=== PATIENT | female | born 1935 | race Caucasian/White ===

== ENCOUNTER → 2017-04-11 | Outpatient (CLI) | payer MEDICARE ==
--- NOTE | 2017-04-12 06:57 | US ---
EXAMINATION TYPE: US thyroid st tissue head/neck DATE OF EXAM: 04/11/2017 COMPARISON: Previous study dated 10/14/2016. CLINICAL HISTORY: E04.9 Goiter. Follow up thyroid nodules GLAND SIZE: Right Lobe: 4.1 x 1.7 x 1.8 cm Overall Parenchyma: homogenous Left Lobe: 4.2 x 1.4 x 1.6 cm Overall Parenchyma: homogeneous Isthmus Thickness: 0.2 cm Bilateral neck scanned, no evidence of lymphadenopathy. Bilateral sub-centimeter nodules noted, measuring less than 0.4cm. Stable appearance from prior exam IMPRESSION: STABLE THYROID ULTRASOUND.
== END | disposition home or self-care (01) ==
LOC: RADUSWWP 16:06
PROVIDERS: ATTEND Family Medicine
DX: E04.9 Nontoxic goiter, unspecified (principal)
CPT/HCPCS: 76536

== ENCOUNTER → 2017-10-19 | Outpatient (CLI) | payer MEDICARE ==
--- NOTE | 2017-10-19 11:02 | US ---
EXAMINATION TYPE: US thyroid st tissue head/neck DATE OF EXAM: 10/19/2017 COMPARISON: Thyroid ultrasound April 11, 2017 CLINICAL HISTORY: E04.1 SINGLE THYROID GOITER. GLAND SIZE: Right Lobe: 3.9 x 1.9 x 1.6 cm Overall Parenchyma: homogenous Left Lobe: 3.6 x 1.4 x 1.3 cm Overall Parenchyma: homogeneous Isthmus Thickness: 0.2 cm NODULES RIGHT: # of nodules measured on right: 0 LEFT: # of nodules measured on left: 0 Small, bilateral sub-centimeter nodules noted. Bilateral neck scanned, no evidence of lymphadenopathy. Thyroid gland remains slightly small in size and heterogeneous echotexture with scattered small nodul es. IMPRESSION: Small heterogeneous thyroid identified today, no new greater than 1 cm solid or cystic nodules are id entified.
== END | disposition home or self-care (01) ==
LOC: RADUSWWP 10:00
PROVIDERS: ATTEND Family Medicine
DX: E04.1 Nontoxic single thyroid nodule (principal)
CPT/HCPCS: 76536

== ENCOUNTER 2017-12-08 12:18 | Inpatient (IN) | payer MEDICARE ==
[2017-12-08] MEDS ORDERED: IPRATROPIUM-ALBUTEROL 3 ML NEB INHALATION STA (12:40)
[2017-12-08] MEDS ORDERED: methylPREDNISolone SOD SUCCI 125 MG/2 ML VIAL IV STA (12:40)
[2017-12-08] MEDS ORDERED: SODIUM CHLORIDE 0.9% 1,000 ML IV STA ×2 (12:40)
[2017-12-08] MEDS ORDERED: PROMETHAZ-COD 6.25-10 MG/5 ML 5 ML CUP PO STA (12:40)
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
[2017-12-08 13:18] LABS: Basophils # (A) 0.1 k/uL (0-0.2); Basophils % (A) 1 %; Eosinophils # (A) 0.3 k/uL (0-0.7); Eosinophils % (A) 5 %; HCT 44.4 % (34.0-46.0); HGB 14.3 gm/dL (11.4-16.0); Lymphocytes # (A) 1.6 k/uL (1.0-4.8); Lymphocytes % (A) 24 %; MCH 32.5 pg (25.0-35.0); MCHC 32.1 g/dL (31.0-37.0); MCV 101.3 fL (80.0-100.0); Mean Platelet Volume 6.6; Monocytes # (A) 0.4 k/uL (0-1.0); Monocytes % (A) 5 %; Neutrophils # (A) 4.1 k/uL (1.3-7.7); Neutrophils % (A) 62 %; Platelet Count 247 k/uL (150-450); RBC 4.38 m/uL (3.80-5.40); RDW 12.6 % (11.5-15.5); WBC 6.6 k/uL (3.8-10.6)
[2017-12-08 13:23] LABS: INR 1.2 (<1.2); Partial Thromboplastin Time 23.1 sec (22.0-30.0); Prothrombin Time 11.1 sec (9.0-12.0)
[2017-12-08 13:25] LABS: ALT 22 U/L (9-52); AST 25 U/L (14-36); Alkaline Phosphatase 106 U/L (38-126); Anion Gap 13 mmol/L; Blood Urea Nitrogen 13 mg/dL (7-17); Calcium 8.9 mg/dL (8.4-10.2); Carbon Dioxide 24 mmol/L (22-30); Chloride 102 mmol/L (98-107); Glucose 88 mg/dL (74-99); Potassium 4.3 mmol/L (3.5-5.1); Sodium 139 mmol/L (137-145); Total Bilirubin 0.9 mg/dL (0.2-1.3); Total Protein 6.8 g/dL (6.3-8.2)
[2017-12-08 13:31] LABS: Creatine Kinase 33 U/L (30-135)
[2017-12-08 13:44] LABS: Creatine Kinase MB 1.2 ng/mL (0.0-2.4); Troponin I <0.012 ng/mL (0.000-0.034)
--- NOTE | 2017-12-08 14:09 | XR ---
EXAMINATION TYPE: XR chest 2V DATE OF EXAM: 12/08/2017 COMPARISON: Prior chest x-ray 03/24/2017, 12/05/[address] 12/03/2015 HISTORY: Difficulty breathing, cough and congestion TECHNIQUE: Frontal and lateral views of the chest are obtained. FINDINGS: Patient is rotated. There are overlying cardiac leads. There is some improvement in aerati on compared to prior exam. Bandlike area of increased density at the left lung base may reflect scarr ing rather than atelectasis. No pneumothorax or pleural effusion. Interstitium is increased. Prominen t lung volume is indicative of underlying emphysema, COPD. Heart there is a spinal curvature. Size is within normal limits. Pulmonary vascularity and richelle not significantly changed. Volume loss persists in the right upper lobe. The aorta is dense. IMPRESSION: Rotated exam. There is interstitial lung disease and emphysema. No acute cardiopulmonary disease is evident.
[2017-12-08] MEDS ORDERED: cefTRIAXone IN SWFI 1,000 MG/10 ML SYRINGE IVP STA (14:30)
[2017-12-08] MEDS ORDERED: LEVOFLOXACIN 750MG-D5W PMX 750 MG in DEXTROSE/WATER 1 150ML.BAG IVPB STA (14:33)
[2017-12-08 15:00] LABS: Appearance,Urine Clear (Clear); Bilirubin,Urine Negative (Negative); Blood,Urine Negative (Negative); Color,Urine Colorless; Glucose,Urine (UA) Negative (Negative); Ketones,Urine Trace (Negative); Leukocyte Esterase,Urine Negative (Negative); Nitrite,Urine Negative (Negative); Protein,Urine Negative (Negative); Specific Gravity,Urine 1.001 (1.001-1.035); Urobilinogen,Urine <2.0 mg/dL (<2.0)
[2017-12-08] MEDS ORDERED: methylPREDNISolone SOD SUCCI 125 MG/2 ML VIAL IV SCH (18:00)
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
[2017-12-08] MEDS: predniSONE 20 MG TAB PO SCH (18:37)
[2017-12-08 18:51] VITALS: BMI 24.0
[2017-12-08] MEDS: IPRATROPIUM-ALBUTEROL 3 ML NEB INHALATION PRN (20:13)
[2017-12-08] MEDS: guaiFENesin 600 MG TABLET.ER PO SCH (21:35)
[2017-12-08] MEDS: DOXYCYCLINE 50 MG CAP PO SCH (21:35)
[2017-12-09] MEDS: IPRATROPIUM-ALBUTEROL 3 ML NEB INHALATION PRN ×4 (07:14→20:02)
[2017-12-09] MEDS: DOXYCYCLINE 50 MG CAP PO SCH (08:08)
[2017-12-09] MEDS: guaiFENesin 600 MG TABLET.ER PO SCH ×2 (08:08→20:20)
[2017-12-09] MEDS: PANTOPRAZOLE 40 MG TABLET PO SCH ×2 (08:08→16:51)
[2017-12-09] MEDS: POTASSIUM CHLORIDE ER 20 MEQ TAB.ER PO SCH (08:08)
[2017-12-09] MEDS: predniSONE 20 MG TAB PO SCH (08:08)
[2017-12-09] MEDS: FUROSEMIDE 20 MG TAB PO SCH (08:09)
--- NOTE | 2017-12-09 15:44 | P.DS ---
Providers Date of admission: 12/08/17 14:57 Attending physician: Chandan Murray Consults: 12/08/17 17:51 Consult Physician Routine Consulting Provider: Ofe Sahu Consult Reason/Comments: COPD exacerbation Do you want consulting provider notified?: Yes Primary care physician: [facility] Course: 82-year-old the female admitted for COPD exacerbation doing pretty well if cleared by pulmonary patient will be discharged today. PHYSICAL EXAMINATION: GENERAL: The patient is alert and oriented x3, not in any acute distress. Well developed, well nourished. HEENT: Pupils are round and equally reacting to light. EOMI. No scleral icterus. No conjunctival pallor. Normocephalic, atraumatic. No pharyngeal erythema. No thyromegaly. CARDIOVASCULAR: S1 and S2 present. No murmurs, rubs, or gallops. PULMONARY: Minimal expiratory wheezing was appreciated ABDOMEN: Soft, nontender, nondistended, normoactive bowel sounds. No palpable organomegaly. MUSCULOSKELETAL: No joint swelling or deformity. EXTREMITIES: No cyanosis, clubbing, or pedal edema. NEUROLOGICAL: Gross neurological examination did not reveal any focal deficits. SKIN: No rashes. Assessment and Plan Plan: -Shortness of breath colons possibly secondary to COPD exacerbation do -Tracheobronchitis: -Possibility of chronic diastolic dysfunction patient is not in acute exacerbation patient has normal ejection fraction the past apparently patient was treated for pulmonary edema in the past is on 20 mg of Lasix which will be continued along with the 20 mEq of potassium. -Gastroesophageal reflux disease -Hyperlipidemia Patient Condition at Discharge: Stable Plan - Discharge Summary New Discharge Prescriptions: New Budesonide-Formot 160-4.5 Mcg [Symbicort 160-4.5 Mcg Inhaler] 2 puff INHALATION BID #1 inhaler Doxycycline [Vibramycin] 100 mg PO BID #8 cap predniSONE 10 mg PO DAILY #30 tab Continue Latanoprost Ophth [Xalatan 0.005%] 1 drops BOTH EYES HS Potassium Chloride [Klor-Con 20] 20 meq PO DAILY Omeprazole [PriLOSEC] 20 mg PO AC-BID Furosemide [Lasix] 20 mg PO DAILY Cholecalciferol [Vitamin D3] 1,000 unit PO DAILY Multivitamin/Iron/Folic Acid [Centrum Complete Multivit Tab] 1 tab PO DAILY Vitamin A 8,000 unit PO DAILY Ipratropium-Albuterol Nebulize [Duoneb 0.5 mg-3 mg/3 ml Soln] 3 ml INHALATION RT-QID #0 Vitamin E (Dl,Tocopheryl Acet) [Vitamin E] 400 unit PO DAILY Vitamin B Complex 1 cap PO DAILY Ascorbic Acid [Vitamin C] 500 mg PO DAILY guaiFENesin [Mucinex] 600 mg PO BID PRN PRN Reason: Congestion Discharge Medication List Cholecalciferol [Vitamin D3] 1,000 unit PO DAILY 11/19/15 [History] Furosemide [Lasix] 20 mg PO DAILY 11/19/15 [History] Latanoprost Ophth [Xalatan 0.005%] 1 drops BOTH EYES HS 11/19/15 [History] Multivitamin/Iron/Folic Acid [Centrum Complete Multivit Tab] 1 tab PO DAILY 12/30 [History] Omeprazole [PriLOSEC] 20 mg PO AC-BID 11/19/15 [History] Potassium Chloride [Klor-Con 20] 20 meq PO DAILY 11/19/15 [History] Vitamin A 8,000 unit PO DAILY 11/26/15 [History] Ipratropium-Albuterol Nebulize [Duoneb 0.5 mg-3 mg/3 ml Soln] 3 ml INHALATION RT -QID #0 12/05/15 [Rx] Ascorbic Acid [Vitamin C] 500 mg PO DAILY 12/08/17 [History] Vitamin B Complex 1 cap PO DAILY 12/08/17 [History] Vitamin E (Dl,Tocopheryl Acet) [Vitamin E] 400 unit PO DAILY 12/08/17 [History] guaiFENesin [Mucinex] 600 mg PO BID PRN 12/08/17 [History] Budesonide-Formot 160-4.5 Mcg [Symbicort 160-4.5 Mcg Inhaler] 2 puff INHALATION BID #1 inhaler 12/09/17 [Rx] Doxycycline [Vibramycin] 100 mg PO BID #8 cap 12/09/17 [Rx] predniSONE 10 mg PO DAILY #30 tab 12/09/17 [Rx] Follow up Appointment(s)/Referral(s): Fabio Pemberton DO [Primary Care Provider] - 1 Week Patient Instructions/Handouts: COPD (Chronic Obstructive Pulmonary Disease) (DC ) Discharge Disposition: HOME SELF-CARE
[2017-12-09] MEDS: PROMETHAZ-COD 6.25-10 MG/5 ML 5 ML CUP PO PRN (16:50)
[2017-12-09] MEDS: methylPREDNISolone SOD SUCCI 125 MG/2 ML VIAL IV SCH ×2 (16:51→23:58)
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
[2017-12-09] MEDS ORDERED: LEVOFLOXACIN 750MG-D5W PMX 750 MG in DEXTROSE/WATER 1 150ML.BAG IVPB SCH (17:00)
[2017-12-09] MEDS: SYMBICORT 160-4.5 MCG INHALER INHALATION SCH (20:02)
[2017-12-09] MEDS: LATANOPROST 0.005% OPHTH DROPS 2.5 ML BTL BOTH EYES SCH (20:20)
[2017-12-10] MEDS: PROMETHAZ-COD 6.25-10 MG/5 ML 5 ML CUP PO PRN ×2 (01:50→23:45)
[2017-12-10] MEDS: methylPREDNISolone SOD SUCCI 125 MG/2 ML VIAL IV SCH ×3 (05:43→17:19)
[2017-12-10] MEDS: FUROSEMIDE 20 MG TAB PO SCH (07:58)
[2017-12-10] MEDS: PANTOPRAZOLE 40 MG TABLET PO SCH ×2 (07:58→17:19)
[2017-12-10] MEDS: guaiFENesin 600 MG TABLET.ER PO SCH ×2 (07:58→20:26)
[2017-12-10] MEDS: POTASSIUM CHLORIDE ER 20 MEQ TAB.ER PO SCH (07:58)
[2017-12-10] MEDS: SYMBICORT 160-4.5 MCG INHALER INHALATION SCH ×2 (10:17→19:47)
[2017-12-10] MEDS: IPRATROPIUM-ALBUTEROL 3 ML NEB INHALATION PRN ×3 (10:17→19:47)
--- NOTE | 2017-12-10 13:44 | P.PN ---
Subjective Progress Note Date: 12/10/17 Principal diagnosis: Acute exacerbation of chronic obstructive pulmonary disease, complicated by purulent tracheobronchitis. Failed outpatient treatment. Ankita is a 82-year-old white female patient of Dr. Fabio Pemberton, who presented to the emergency department on 12/08/2017 at 1218 with complaints of 5 day history of coughing, chest congestion, increasing shortness of breath. Her symptoms started last Tuesday with coughing, by Tuesday night she started getting sicker, increasing chest congestion, unable to clear any sputum. She tried her home nebulizers with not much improvement. She called Dr. Pemberton on Tuesday who prescribed Z-Umesh for her however her symptoms were progressing. She became increasingly wheezy, short of breath, weak, she was having very severe coughing spells, she started developing burning in her chest and throat. Denied any fever, denied any chills or sore throat. Does have a history of underlying COPD, follows with Dr. Tafoya. Her FEV1 from 06/14/2016 was at 85% of predicted consistent with minimal obstructive airway disease. Patient is on nebulizer DuoNeb in addition to Mucinex. Other medical history includes recurrent pneumonias, CHF, hyperlipidemia, GERD/reflux, hyperlipidemia, osteoarthritis, glaucoma. Patient is a former smoker, quit in 2012, but prior to that smoked less than a pack a day, 10-15 cigarettes a day for about 1 10 years. Patient has been afebrile, hemodynamically stable. Pulse ox is 91% on room air. Chest x-ray from 12/08/2017 showed interstitial lung disease and emphysema, but no acute cardiopulmonary disease. Patient was initially started on Levaquin and Rocephin, which was later switched to doxycycline. She received a liter bolus in the emergency room. She was given IV steroids that are now switched to oral steroids. She is on nebulized treatments. Patient's lab work showed WBC within normal limits at 6.6, hemoglobin hemoglobin of 14.3, INR is 1.2, electrolytes and renal profile within normal limits. Cardiac enzymes and troponins were negative times one. Influenza screen was negative. The patient is seen again today 12/10/2017 in follow-up on the regular medical floor. She is awake and alert in no acute distress. She denies any worsening shortness of breath cough or congestion. She still has some dyspnea on exertion. Still not quite back to her baseline. She is maintaining good O2 saturations in the 90s on room air. She's been afebrile. Hemodynamically stable. Blood culture reveals no growth to date. Objective - Vital Signs Vital signs: Vital Signs Temp 98.3 F 12/10/17 06:41 Pulse 96 12/10/17 10:29 Resp 16 12/10/17 06:41 BP 114/58 12/10/17 06:41 Pulse Ox 94 L 12/10/17 06:41 Intake & Output 12/09/17 12/10/17 12/10/17 18:59 06:59 18:59 Intake Total 1200 Balance 1200 Intake: Oral 1200 Other: # Voids 2 3 - Exam GENERAL EXAM: Alert, active, comfortable in no apparent distress. HEAD: Normocephalic. EYES: Normal reaction of pupils, equal size. NOSE: Clear with pink turbinates. THROAT: No erythema or exudates. NECK: No masses, no JVD. CHEST: No chest wall deformity. LUNGS: Equal air entry with faint end expiratory wheeze. Diminished.. CVS: S1 and S2 normal with no audible murmur, regular rhythm. ABDOMEN: No hepatosplenomegaly, normal bowel sounds, no guarding or rigidity. SPINE: No scoliosis or deformity SKIN: No rashes CENTRAL NERVOUS SYSTEM: No focal deficits, tone is normal in all 4 extremities. EXTREMITIES: There is no peripheral edema. No clubbing, no cyanosis. Peripheral pulses are intact. - Labs CBC & Chem 7: 12/08/17 13:00 12/08/17 13:00 Labs: Microbiology - Last 24 Hours (Table) 12/08/17 13:00 Blood Culture - Preliminary Blood No Growth after 24 hours Assessment and Plan Assessment: Assessment: #1. Acute COPD exacerbation with purulent tracheobronchitis with failed outpatient treatment #2. History of COPD, with FEV1 of 85% of predicted. #3. Nicotine dependence, currently in remission, quit in 2012, prior to that smoked for 60 years 10-15 cigarettes a day #4. History of recurrent pneumonias in the past, #5. History of CHF #6. Hyperlipidemia #7. Previous history of C. diff colitis #8. History of GERD/reflux #9. Osteoarthritis/osteoporosis #10. History of bilateral cataract surgery Plan: The patient was seen and evaluated by Dr. Tafoya. She is improved today as compared to yesterday. We'll continue with her current treatment plan. We will increase her activity as tolerated. We'll continue to follow. I, the cosigning physician, performed a history & physical examination of the patient. Lungs sounds have bilateral end expiratory wheeze. Maintaining good O2 saturations in the 90s on room air. I discussed the assessment and plan of care with my nurse practitioner, Franci Capps. I attest to the above note as dictated by her.
[2017-12-10] MEDS ORDERED: LEVOFLOXACIN 750 MG TAB PO SCH (17:00)
[2017-12-10] MEDS: LATANOPROST 0.005% OPHTH DROPS 2.5 ML BTL BOTH EYES SCH (20:26)
--- NOTE | 2017-12-10 22:57 | P.PN ---
Progress Note - Text Progress Note Date: 12/10/17 Date of service: 12/10/2017 Presenting complaint: Cough History of present complaint: Patient presented with acute tracheobronchitis and COPD exacerbation. Still congested in the chest. Not able to bring up any sputum. Feels a bit better. Did tolerate her diet. Had a bowel movement. Up to the bathroom. Does feel tired. Review of systems: Was done for constitutional, cardiovascular, GI, pulmonary. relevant finding as above Medications are reviewed: That include nebulize bronchodilator, Levaquin, IV Solu-Medrol On examination: VITAL SIGNS: 96.4, 95, 14, 144/60, 94% room air GENERAL APPEARANCE: Laying in bed, tired appearing. HEENT: Normal external appearance of nose and ear. Oral cavity normal EYES: Pupils equal. Conjunctiva normal. NECK: JVD not raised. Mass not palpable. RESPIRATORY: Respiratory effort increased, lungs diminished breath sounds with expiratory coarse crackles and some wheezing. CARDIOVASCULAR: First and second sounds normal. No edema. ABDOMEN: Soft. Liver and spleen not palpable. No tenderness. No mass palpable. PSYCHIATRY: Alert and oriented x3. Mood and affect normal. Investigations: No blood work from today Assessment: -Acute COPD exacerbation due to acute tracheal bronchitis -Chronic congestive heart failure EF not known -Primary osteoarthritis of multiple joints -Chronic urinary stress incontinence -Chronic hyperlipidemia -GERD Plan: Continue with bronchodilators. back the dose of Solu-Medrol. Discussed with Dr. Seth and the patient. Hopefully can be discharged tomorrow
[2017-12-10] MEDS: IPRATROPIUM-ALBUTEROL 3 ML NEB INHALATION SCH (23:04)
[2017-12-10] MEDS: ENOXAPARIN 40 MG/0.4 ML SYRINGE SQ SCH (23:45)
[2017-12-10 23:55] VITALS: RESP 16
[2017-12-11 06:40] VITALS: BP 113/70; TEMP 97
[2017-12-11] MEDS: FUROSEMIDE 20 MG TAB PO SCH (07:50)
[2017-12-11] MEDS: guaiFENesin 600 MG TABLET.ER PO SCH (07:50)
[2017-12-11] MEDS: POTASSIUM CHLORIDE ER 20 MEQ TAB.ER PO SCH (07:51)
[2017-12-11] MEDS: PANTOPRAZOLE 40 MG TABLET PO SCH (07:51)
[2017-12-11] MEDS: ENOXAPARIN 40 MG/0.4 ML SYRINGE SQ SCH (07:51)
[2017-12-11] MEDS ORDERED: methylPREDNISolone SOD SUCCI 40 MG/ML 1 ML VIAL IV SCH (08:00)
[2017-12-11] MEDS: IPRATROPIUM-ALBUTEROL 3 ML NEB INHALATION SCH ×2 (08:24→11:31)
[2017-12-11] MEDS: SYMBICORT 160-4.5 MCG INHALER INHALATION SCH (08:24)
[2017-12-11 08:36] LABS: Basophils % (A) 0 %; Eosinophils % (A) 0 %; HCT 44.1 % (34.0-46.0); HGB 13.8 gm/dL (11.4-16.0); Lymphocytes # (A) 1.8 k/uL (1.0-4.8); Lymphocytes % (A) 12 %; MCH 32.5 pg (25.0-35.0); MCHC 31.4 g/dL (31.0-37.0); MCV 103.4 fL (80.0-100.0); Macrocytosis Slight; Mean Platelet Volume 6.7; Monocytes # (A) 0.5 k/uL (0-1.0); Monocytes % (A) 3 %; Neutrophils # (A) 12.8 k/uL (1.3-7.7); Neutrophils % (A) 84 %; Platelet Count 327 k/uL (150-450); RBC 4.26 m/uL (3.80-5.40); RDW 12.8 % (11.5-15.5); WBC 15.3 k/uL (3.8-10.6)
[2017-12-11 08:38] LABS: Anion Gap 14 mmol/L; Blood Urea Nitrogen 22 mg/dL (7-17); Calcium 9.2 mg/dL (8.4-10.2); Carbon Dioxide 24 mmol/L (22-30); Chloride 105 mmol/L (98-107); Glucose 104 mg/dL (74-99); Potassium 3.9 mmol/L (3.5-5.1); Sodium 143 mmol/L (137-145)
--- NOTE | 2017-12-11 09:37 | P.PN ---
Subjective Progress Note Date: 12/11/17 Principal diagnosis: Acute exacerbation of COPD, compensated by purulent tracheobronchitis with failed outpatient treatmentJose Luciano is a 82-year-old white female patient of Dr. Fabio Pemberton, who presented to the emergency department on 12/08/2017 at 1218 with complaints of 5 day history of coughing, chest congestion, increasing shortness of breath. Her symptoms started last Tuesday with coughing, by Tuesday night she started getting sicker, increasing chest congestion, unable to clear any sputum. She tried her home nebulizers with not much improvement. She called Dr. Pemberton on Tuesday who prescribed Z-Umesh for her however her symptoms were progressing. She became increasingly wheezy, short of breath, weak, she was having very severe coughing spells, she started developing burning in her chest and throat. Denied any fever, denied any chills or sore throat. Does have a history of underlying COPD, follows with Dr. Tafoya. Her FEV1 from 06/14/2016 was at 85% of predicted consistent with minimal obstructive airway disease. Patient is on nebulizer DuoNeb in addition to Mucinex. Other medical history includes recurrent pneumonias, CHF, hyperlipidemia, GERD/reflux, hyperlipidemia, osteoarthritis, glaucoma. Patient is a former smoker, quit in 2012, but prior to that smoked less than a pack a day, 10-15 cigarettes a day for about 1 10 years. Patient has been afebrile, hemodynamically stable. Pulse ox is 91% on room air. Chest x-ray from 12/08/2017 showed interstitial lung disease and emphysema, but no acute cardiopulmonary disease. Patient was initially started on Levaquin and Rocephin, which was later switched to doxycycline. She received a liter bolus in the emergency room. She was given IV steroids that are now switched to oral steroids. She is on nebulized treatments. Patient's lab work showed WBC within normal limits at 6.6, hemoglobin hemoglobin of 14.3, INR is 1.2, electrolytes and renal profile within normal limits. Cardiac enzymes and troponins were negative times one. Influenza screen was negative. The patient is seen again today 12/10/2017 in follow-up on the regular medical floor. She is awake and alert in no acute distress. She denies any worsening shortness of breath cough or congestion. She still has some dyspnea on exertion. Still not quite back to her baseline. She is maintaining good O2 saturations in the 90s on room air. She's been afebrile. Hemodynamically stable. Blood culture reveals no growth to date. On 12/11/2017 patient seen in follow-up. She reports her breathing is easier, she feels less chest congestion, less dyspneic. Her vitals are stable, she is on room air with O2 sat at 95%. She is afebrile. Lung sounds are positive for scattered rhonchi, but this is improved from previous exams. Patient is up ambulating, tolerating activity well. She is requesting to go home today. From pulmonary standpoint she is stable for discharge home today. Objective - Vital Signs Vital signs: Vital Signs Temp 97.0 F L 12/11/17 06:39 Pulse 100 12/11/17 08:39 Resp 16 12/11/17 06:39 BP 113/70 12/11/17 06:39 Pulse Ox 95 12/11/17 06:39 Intake & Output 12/10/17 12/11/17 12/11/17 18:59 06:59 18:59 Other: Voiding Method Toilet # Voids 1 2 - Exam GENERAL EXAM: Alert, active, comfortable in no apparent distress. HEAD: Normocephalic. EYES: Normal reaction of pupils, equal size. NOSE: Clear with pink turbinates. THROAT: No erythema or exudates. NECK: No masses, no JVD. CHEST: No chest wall deformity. LUNGS: Coarse lung sounds, scattered rhonchi. No rales or wheezes, improvement noted since previous exams. CVS: S1 and S2 normal with no audible murmur, regular rhythm. ABDOMEN: No hepatosplenomegaly, normal bowel sounds, no guarding or rigidity. SPINE: No scoliosis or deformity SKIN: No rashes CENTRAL NERVOUS SYSTEM: No focal deficits, tone is normal in all 4 extremities. EXTREMITIES: There is no peripheral edema. No clubbing, no cyanosis. Peripheral pulses are intact. - Labs CBC & Chem 7: 12/11/17 08:07 12/11/17 08:07 Labs: Abnormal Lab Results - Last 24 Hours (Table) 12/11/17 12/11/17 Range/Units 08:07 08:07 WBC 15.3 H (3.8-10.6) k/uL MCV 103.4 H (80.0-100.0) fL Neutrophils # 12.8 H (1.3-7.7) k/uL BUN 22 H (7-17) mg/dL Glucose 104 H (74-99) mg/dL Microbiology - Last 24 Hours (Table) 12/08/17 13:00 Blood Culture - Preliminary Blood No Growth after 48 hours Assessment and Plan Plan: Assessment: #1. Acute COPD exacerbation with purulent tracheobronchitis with failed outpatient treatment, improving #2. History of COPD, with FEV1 of 85% of predicted. #3. Nicotine dependence, currently in remission, quit in 2012, prior to that smoked for 60 years 10-15 cigarettes a day #4. History of recurrent pneumonias in the past, #5. History of CHF #6. Hyperlipidemia #7. Previous history of C. diff colitis #8. History of GERD/reflux #9. Osteoarthritis/osteoporosis #10. History of bilateral cataract surgery Plan: Patient reports significant improvements in terms of dyspnea, chest congestion and coughing. Vital signs are stable, no acute events overnight. She is requesting to go home today. From pulmonary standpoint she is stable for discharge home. She will need follow-up with Dr. Seth in the office in 7 days. She will need to finish prednisone taper, 5 more days of Levaquin 750 mg , we will check coverage for Symbicort. I performed a history & physical examination of the patient and discussed their management with my nurse practitioner, Ashley Stone. I reviewed the nurse practitioner's note and agree with the documented findings and plan of care. Lung sounds are positive for scattered rhonchi. The findings and the impression was discussed with the patient. I attest to the documentation by the nurse practitioner. Time with Patient: Less than 30
[2017-12-11 11:51] VITALS: PULSE 100
--- NOTE | 2017-12-11 22:05 | P.DS ---
Providers Date of admission: 12/08/17 14:57 Expected date of discharge: 12/11/17 Attending physician: Chandan Murray Consults: 12/08/17 17:51 Consult Physician Routine Consulting Provider: Ofe Sahu Consult Reason/Comments: COPD exacerbation Do you want consulting provider notified?: Yes Primary care physician: [facility] Course: Patient admitted with COPD exacerbation and acute bronchitis. Chest congestion much improved. Tolerating a diet. Had a bowel movement. Had been out of bed. Okayed by to be discharged. Care was discussed with patient in detail. Questions were answered. On examination Respiratory-lungs decreased breath sounds and some expiratory wheezing Cardio vascular first seconds are normal Patient Condition at Discharge: Stable Plan - Discharge Summary New Discharge Prescriptions: New Budesonide-Formot 160-4.5 Mcg [Symbicort 160-4.5 Mcg Inhaler] 2 puff INHALATION BID #1 inhaler predniSONE 10 mg PO DAILY #30 tab Levofloxacin [Levaquin] 750 mg PO DAILY 5 Days #5 tab Continue Latanoprost Ophth [Xalatan 0.005%] 1 drops BOTH EYES HS Potassium Chloride [Klor-Con 20] 20 meq PO DAILY Omeprazole [PriLOSEC] 20 mg PO AC-BID Furosemide [Lasix] 20 mg PO DAILY Cholecalciferol [Vitamin D3] 1,000 unit PO DAILY Multivitamin/Iron/Folic Acid [Centrum Complete Multivit Tab] 1 tab PO DAILY Vitamin A 8,000 unit PO DAILY Ipratropium-Albuterol Nebulize [Duoneb 0.5 mg-3 mg/3 ml Soln] 3 ml INHALATION RT-QID #0 Vitamin E (Dl,Tocopheryl Acet) [Vitamin E] 400 unit PO DAILY Vitamin B Complex 1 cap PO DAILY Ascorbic Acid [Vitamin C] 500 mg PO DAILY guaiFENesin [Mucinex] 600 mg PO BID PRN PRN Reason: Congestion Discharge Medication List Cholecalciferol [Vitamin D3] 1,000 unit PO DAILY 11/19/15 [History] Furosemide [Lasix] 20 mg PO DAILY 11/19/15 [History] Latanoprost Ophth [Xalatan 0.005%] 1 drops BOTH EYES HS 11/19/15 [History] Multivitamin/Iron/Folic Acid [Centrum Complete Multivit Tab] 1 tab PO DAILY 12/30 [History] Omeprazole [PriLOSEC] 20 mg PO AC-BID 11/19/15 [History] Potassium Chloride [Klor-Con 20] 20 meq PO DAILY 11/19/15 [History] Vitamin A 8,000 unit PO DAILY 11/26/15 [History] Ipratropium-Albuterol Nebulize [Duoneb 0.5 mg-3 mg/3 ml Soln] 3 ml INHALATION RT -QID #0 12/05/15 [Rx] Ascorbic Acid [Vitamin C] 500 mg PO DAILY 12/08/17 [History] Vitamin B Complex 1 cap PO DAILY 12/08/17 [History] Vitamin E (Dl,Tocopheryl Acet) [Vitamin E] 400 unit PO DAILY 12/08/17 [History] guaiFENesin [Mucinex] 600 mg PO BID PRN 12/08/17 [History] Budesonide-Formot 160-4.5 Mcg [Symbicort 160-4.5 Mcg Inhaler] 2 puff INHALATION BID #1 inhaler 12/09/17 [Rx] predniSONE 10 mg PO DAILY #30 tab 12/09/17 [Rx] Levofloxacin [Levaquin] 750 mg PO DAILY 5 Days #5 tab 12/11/17 [Rx] Follow up Appointment(s)/Referral(s): Johan Tafoya MD [STAFF PHYSICIAN] - 1 Week Fabio Pemberton DO [Primary Care Provider] - 1 Week Patient Instructions/Handouts: COPD (Chronic Obstructive Pulmonary Disease) (DC ) Discharge Disposition: HOME SELF-CARE
== END 2017-12-11 14:42 | disposition home or self-care (01) | DRG 191 ==
LOC: EC 12:18 → 4MS4W 14:57
PROVIDERS: ADMIT Hospitalist; ATTEND Hospitalist
DX: J44.0 Chronic obstructive pulmonary disease with (acute) lower respiratory infection (principal); J84.9 Interstitial pulmonary disease, unspecified; J96.11 Chronic respiratory failure with hypoxia; I50.32 Chronic diastolic (congestive) heart failure; E78.5 Hyperlipidemia, unspecified; J20.9 Acute bronchitis, unspecified; J44.1 Chronic obstructive pulmonary disease with (acute) exacerbation; F17.200 Nicotine dependence, unspecified, uncomplicated; H40.9 Unspecified glaucoma; K21.9 Gastro-esophageal reflux disease without esophagitis; M15.9 Polyosteoarthritis, unspecified; M81.0 Age-related osteoporosis without current pathological fracture; N39.3 Stress incontinence (female) (male); Z79.51 Long term (current) use of inhaled steroids; Z79.899 Other long term (current) drug therapy; Z86.19 Personal history of other infectious and parasitic diseases; Z87.01 Personal history of pneumonia (recurrent); Z90.710 Acquired absence of both cervix and uterus; Z96.1 Presence of intraocular lens; Z96.652 Presence of left artificial knee joint; Z82.49 Family history of ischemic heart disease and other diseases of the circulatory system; Z88.8 Allergy status to other drugs, medicaments and biological substances
CPT/HCPCS: 36415; 71046; 80048; 80053; 81003; 82550; 82553; 83605; 84484; 85025; 85610; 85730; 87040; 87502; 93005; 94640; 96361; 96365; 96375; 99285

== ENCOUNTER → 2018-02-08 | Outpatient (CLI) | payer MEDICARE ==
--- NOTE | 2018-02-08 13:20 | CT ---
EXAMINATION TYPE: CT sinus wo con DATE OF EXAM: 02/08/2018 COMPARISON: NONE HISTORY: Patient complains of chronic frontal headaches. CT DLP: 606 mGycm. Automated Exposure Control for Dose Reduction was Utilized. TECHNIQUE: CT scan of the sinuses is performed without contrast, axial images are obtained, coronal r eformatted images are also reviewed. 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 There is a very scant mucosal thickening is seen w ithin the posterior left lateral ethmoid sinuses. Remaining visualized paranasal sinuses are well aer ated as are the mastoid air cells. There is no fluid within the middle ear cavities. paper cone machine tender y canals are patent. Minimal atherosclerosis is seen within the cavernous and supraclinoid portions o f the internal carotid arteries. Osseous structures are intact including the maxillary spine, nasal septum and nasal bone. The ostiome atal complexes are patent. There is no evidence of michael bullosa or Iris cells. No significant dre al turbinate mucosal hypertrophy is seen. Nasal septum is overall midline. Temporomandibular joints a re unremarkable with mandibular condyles are located in the mandibular fossa. Exam is limited for julio cesar luation of intracranial structures given technique. IMPRESSION: 1. Frontal sinus aplasia. 2. No evidence of ostiomeatal occlusion. Scant mucosal thickening is seen within the posterior left l ateral ethmoid air cells. 3. No michael bullosa or Iris cells. No significant nasal turbinate mucosal hypertrophy.
== END | disposition home or self-care (01) ==
LOC: RADCTMAIN 12:17
PROVIDERS: ATTEND Internal Medicine
DX: J34.89 Other specified disorders of nose and nasal sinuses (principal); Z88.8 Allergy status to other drugs, medicaments and biological substances
CPT/HCPCS: 70486

== ENCOUNTER → 2018-04-17 | Outpatient (CLI) | payer MEDICARE ==
--- NOTE | 2018-04-17 13:46 | US ---
EXAMINATION TYPE: US thyroid st tissue head/neck DATE OF EXAM: 04/17/2018 COMPARISON: 10/19/2017 CLINICAL HISTORY: 82-year-old female E04.9 NONTOXIC GOITER. F/U TECHNIQUE: Multiple sonographic images of the thyroid gland are obtained. FINDINGS: GLAND SIZE: Right Lobe: 4.4 x 2.0 x 1.7 cm Overall Parenchyma: heterogenous Left Lobe: 4.4 x 1.5 x 1.6 cm Overall Parenchyma: heterogeneous Isthmus Thickness: 0.3 cm Bilateral neck scanned, no evidence of lymphadenopathy. Ivf Embryologist notes: Slightly heterogeneous gland bilaterally with small, scattered sub-centimeter (lar gest 0.4 cm) cystic nodules as seen on previous exams. Essentially unchanged. IMPRESSION: Scattered tiny thyroid cysts redemonstrated, largest measuring 4 mm. No suspicious nodules.
== END | disposition home or self-care (01) ==
LOC: RADUSWWP 12:01
PROVIDERS: ATTEND Family Medicine
DX: E04.2 Nontoxic multinodular goiter (principal)
CPT/HCPCS: 76536

== ENCOUNTER 2018-09-25 09:08 | Inpatient (IN) | payer MEDICARE ==
[2018-09-25] MEDS ORDERED: IPRATROPIUM-ALBUTEROL 3 ML NEB INHALATION STA (09:33)
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
[2018-09-25 10:33] LABS: Basophils % (A) 0 %; Eosinophils # (A) 0.1 k/uL (0-0.7); Eosinophils % (A) 2 %; HCT 40.3 % (34.0-46.0); HGB 13.4 gm/dL (11.4-16.0); Lymphocytes # (A) 1.3 k/uL (1.0-4.8); Lymphocytes % (A) 16 %; MCH 32.8 pg (25.0-35.0); MCHC 33.4 g/dL (31.0-37.0); MCV 98.2 fL (80.0-100.0); Mean Platelet Volume 7.1; Monocytes # (A) 0.5 k/uL (0-1.0); Monocytes % (A) 6 %; Neutrophils # (A) 6.1 k/uL (1.3-7.7); Neutrophils % (A) 75 %; Platelet Count 237 k/uL (150-450); RDW 12.7 % (11.5-15.5); WBC 8.2 k/uL (3.8-10.6)
[2018-09-25 10:52] LABS: ALT 19 U/L (9-52); AST 21 U/L (14-36); Albumin 3.3 g/dL (3.5-5.0); Alkaline Phosphatase 89 U/L (38-126); Anion Gap 8 mmol/L; Blood Urea Nitrogen 15 mg/dL (7-17); Calcium 8.8 mg/dL (8.4-10.2); Carbon Dioxide 29 mmol/L (22-30); Chloride 105 mmol/L (98-107); Glucose 91 mg/dL (74-99); Magnesium 2.1 mg/dL (1.6-2.3); Potassium 4.4 mmol/L (3.5-5.1); Sodium 142 mmol/L (137-145); Total Bilirubin 0.7 mg/dL (0.2-1.3)
--- NOTE | 2018-09-25 10:52 | XR ---
EXAMINATION TYPE: XR chest 2V DATE OF EXAM: 09/25/2018 COMPARISON: 12/19/2017 TECHNIQUE: PA and lateral views submitted. HISTORY: Cough FINDINGS: There is a right basilar infiltrate which appears new with small effusion. Coarsened interstitium is stable and there is ectasia of the aorta with atherosclerotic change. Biapical pleural thickening. No pneumothorax. Diffuse osteopenia and arthropathy of the shoulders. Scoliotic curvature the spine wit h hypertrophic and degenerative changes. IMPRESSION: 1. No right lower lobe infiltrate correlate for pneumonia with small effusion. 2. Coarsened interstitium may represent chronic interstitial lung disease or venous congestion correl ate clinically.
[2018-09-25 10:53] LABS: INR 1.1 (<1.2); Partial Thromboplastin Time 24.4 sec (22.0-30.0); Prothrombin Time 11.3 sec (9.0-12.0)
[2018-09-25 11:02] LABS: Creatine Kinase <20 U/L (30-135)
[2018-09-25 11:15] LABS: Creatine Kinase MB 0.5 ng/mL (0.0-2.4); Troponin I <0.012 ng/mL (0.000-0.034)
[2018-09-25] MEDS ORDERED: LEVOFLOXACIN 750MG-D5W PMX 750 MG in DEXTROSE/WATER 1 150ML.BAG IVPB STA (11:31)
[2018-09-25] MEDS ORDERED: PNEUMONIA PROTOCOL UTILIZED 1 EACH MISC PO PRN (11:33)
[2018-09-25] MEDS: IPRATROPIUM-ALBUTEROL 3 ML NEB INHALATION SCH ×3 (12:09→20:18)
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
[2018-09-25] MEDS: SODIUM CHLORIDE 0.9% 1,000 ML IV SCH (17:01)
[2018-09-25] MEDS: AZITHROMYCIN 500 MG TAB PO SCH (17:05)
[2018-09-25] MEDS: FUROSEMIDE 20 MG TAB PO SCH (17:06)
[2018-09-25] MEDS: methylPREDNISolone SOD SUCCI 40 MG/ML 1 ML VIAL IV SCH (17:07)
[2018-09-25] MEDS ORDERED: ALPRAZolam 0.25 MG TAB PO PRN (19:45)
[2018-09-25] MEDS ORDERED: MELATONIN 3 MG TABLET PO PRN (19:45)
--- NOTE | 2018-09-25 20:14 | HP ---
HISTORY AND PHYSICAL CHIEF COMPLAINTS: Shortness of breath and cough. HISTORY OF PRESENT ILLNESS: This 83-year-old woman with a past medical history of multiple medical problems, including COPD, CHF, history of GERD, hypertension, hyperlipidemia, history of pneumonia, history of recurrent pneumonias, chronic hypoxic respiratory failure, being followed by Dr. Pemberton in the outpatient setting, was not feeling well. The patient had shortness of breath and cough for the past several days and the patient came to [facility] and was admitted for further evaluation. Right lower lobe pneumonia was suspected. Patient was started on IV antibiotics. Dr. Tafoya's evaluation is in progress. There is no history of fever, rigors, chills, no history of headache, loss of consciousness, seizures. PAST MEDICAL HISTORY: 1. History of CHF. 2. COPD. 3. History of GERD. 4. Hyperlipidemia. 5. History of pneumonia. 6. History of recurrent pneumonia. HOME MEDICATIONS: 1. Vitamin E 400 units daily. 2. Vitamin B complex 1 p.o. daily. 3. Vitamin A 8000 units daily. 4. Vitamin C/E/zinc. 5. Klor-Con 20 mEq p.o. daily. 6. Prilosec 20 mg b.i.d. 7. Multivitamins 1 p.o. daily. 8. DuoNeb q.i.d. and p.r.n. 9. Lasix 20 mg p.o. daily. 10.Vitamin D3 1000 daily. 11.Vitamin C 500 mg p.o. daily. ALLERGIES: CLARITIN and VIOXX. FAMILY HISTORY: History of renal disease in mother. SOCIAL HISTORY: Previous history of smoking. Occasional alcohol intake. REVIEW OF SYSTEMS: ENT: No diminished hearing. No diminished vision. CARDIOVASCULAR SYSTEM: No angina, palpitations. Otherwise as mentioned earlier. RESPIRATORY SYSTEM: As mentioned earlier. GI: No nausea, vomiting. : No dysuria or retention. NERVOUS SYSTEM: No numbness, weakness. ALLERGY/IMMUNOLOGY: No asthma, hayfever. MUSCULOSKELETAL: As mentioned earlier. HEMATOLOGY/ONCOLOGY: No history of anemia. ENDOCRINE: No history of diabetes, hypothyroidism. CONSTITUTIONAL: As mentioned earlier. DERMATOLOGY: Negative. RHEUMATOLOGY: Negative. PSYCHIATRY: As mentioned earlier. PHYSICAL EXAMINATION: Patient alert and oriented x3. Pulse is 87, blood pressure 100/50, respiration 16, temperature 98.2, pulse ox 94% on room air. HEENT: Conjunctivae normal. Oral mucosa moist. NECK: No jugular venous distention. No carotid bruit. No lymph node enlargement. CARDIOVASCULAR SYSTEM: S1, S2 muffled. No S3. No S4. RESPIRATORY SYSTEM: Breath sounds diminished at the bases. Bilateral scattered rhonchi and crackles. Expiratory wheezing also present. ABDOMEN: Soft, nontender. No mass palpable. LEGS: No edema. No swelling. NERVOUS SYSTEM: Higher functions as mentioned earlier. Moves all 4 limbs. No focal motor or sensory deficit. LYMPHATICS: No lymph node palpable in neck, axillae or groin. SKIN: No ulcer, rash, bleeding. JOINTS: No active deforming arthropathy. LABS: CBC and BMP within normal limits. Albumin 3.3. Chest x-ray was reviewed personally by me. ASSESSMENT: 1. Acute right lower lobe pneumonia, possibly community-acquired pneumonia. 2. Chronic obstructive pulmonary disease. 3. History of congestive heart failure. 4. History of gastroesophageal reflux disease. 5. Hypertension. 6. History of recurrent pneumonia. 7. Chronic hypoxic respiratory failure. 8. Bilateral glaucoma. 9. Hiatal hernia. 10.History of degenerative joint disease. 11.History of cardiac catheterization. 12.Remote history of nicotine dependence. RECOMMENDATIONS AND DISCUSSION: I recommend to continue current management, continue with symptomatic treatment. Continue the broad-spectrum IV antibiotics. Continue the bronchodilators. I would also recommend a short course of IV steroids. Obtain cultures. Closely follow with Dr. Tafoya. DVT prophylaxis. GI prophylaxis. Guarded prognosis. Further recommendations to follow. A copy of this dictation is being forwarded to Dr. Pemberton, who is the primary physician. MMODL / IJN: [id number] /
[2018-09-25] MEDS: SYMBICORT 160-4.5 MCG INHALER INHALATION SCH (20:18)
[2018-09-25 21:31] LABS: Glucose,Whole Blood 183 mg/dL (75-99)
[2018-09-25] MEDS: INSULIN ASPART 100 UNIT/ML 1 ML 10 ML VIAL SQ SCH (21:37)
[2018-09-25] MEDS: HEPARIN SODIUM,PORCINE 5,000 UNIT/ML 1 ML VIAL SQ SCH (21:37)
[2018-09-25] MEDS: LATANOPROST 0.005% OPHTH DROPS 2.5 ML BTL BOTH EYES SCH (21:37)
[2018-09-25] MEDS: VIT A,C & E-LUTEIN-MINERALS 1 EACH TAB PO SCH (21:37)
[2018-09-26 07:12] LABS: Glucose,Whole Blood 143 mg/dL (75-99)
[2018-09-26] MEDS ORDERED: NON-FORMULARY DRUG (Omeprazole [Prilosec] 20 MG) PO SCH (07:30)
[2018-09-26] MEDS: ASCORBIC ACID 500 MG TAB PO SCH ×2 (08:45→08:55)
[2018-09-26] MEDS: AZITHROMYCIN 500 MG TAB PO SCH ×2 (08:45→08:55)
[2018-09-26] MEDS: VIT A,C & E-LUTEIN-MINERALS 1 EACH TAB PO SCH ×2 (08:45→20:59)
[2018-09-26 08:47] LABS: Basophils % (A) 0 %; Eosinophils % (A) 0 %; HCT 39.1 % (34.0-46.0); Lymphocytes # (A) 0.6 k/uL (1.0-4.8); Lymphocytes % (A) 11 %; MCH 32.9 pg (25.0-35.0); MCHC 33.2 g/dL (31.0-37.0); MCV 99.1 fL (80.0-100.0); Mean Platelet Volume 7.6; Monocytes # (A) 0.1 k/uL (0-1.0); Monocytes % (A) 1 %; Neutrophils # (A) 5.2 k/uL (1.3-7.7); Neutrophils % (A) 87 %; Platelet Count 232 k/uL (150-450); RBC 3.94 m/uL (3.80-5.40); RDW 12.6 % (11.5-15.5)
[2018-09-26 08:51] LABS: Anion Gap 6 mmol/L; Blood Urea Nitrogen 16 mg/dL (7-17); Carbon Dioxide 27 mmol/L (22-30); Chloride 107 mmol/L (98-107); Glucose 139 mg/dL (74-99); Potassium 4.5 mmol/L (3.5-5.1); Sodium 140 mmol/L (137-145)
[2018-09-26] MEDS: IPRATROPIUM-ALBUTEROL 3 ML NEB INHALATION SCH ×4 (08:53→20:57)
[2018-09-26] MEDS: SYMBICORT 160-4.5 MCG INHALER INHALATION SCH ×2 (08:53→21:00)
[2018-09-26] MEDS: HEPARIN SODIUM,PORCINE 5,000 UNIT/ML 1 ML VIAL SQ SCH ×2 (08:56→20:59)
[2018-09-26] MEDS: CHOLECALCIFEROL 1,000 UNIT TAB PO SCH (08:56)
[2018-09-26] MEDS: POTASSIUM CHLORIDE ER 20 MEQ TAB.ER PO SCH (08:56)
[2018-09-26] MEDS: FUROSEMIDE 20 MG TAB PO SCH ×2 (08:56→17:16)
[2018-09-26] MEDS: methylPREDNISolone SOD SUCCI 40 MG/ML 1 ML VIAL IV SCH ×3 (08:57→17:16)
[2018-09-26] MEDS: PANTOPRAZOLE 40 MG TABLET PO SCH (08:57)
[2018-09-26] MEDS: INSULIN ASPART 100 UNIT/ML 1 ML 10 ML VIAL SQ SCH ×4 (08:57→20:59)
--- NOTE | 2018-09-26 08:59 | XR ---
EXAMINATION TYPE: XR chest 2V DATE OF EXAM: 09/26/2018 COMPARISON: Prior chest x-ray 09/25/[address] 12/03/2015 HISTORY: Pneumonia, cough and congestion TECHNIQUE: Frontal and lateral views of the chest are obtained. FINDINGS: Linear stranding at the lung bases may reflect atelectasis or scar with bronchiectasis. In terstitium is increased. No evident pneumothorax. No evident pleural effusion. The aorta is dense. Wes ne mineralization somewhat reduced. Cardiac mediastinal silhouette, pulmonary vascularity and richelle ar e stable. Prominent lung volumes compatible with underlying COPD. IMPRESSION: Suspect basilar atelectasis or scarring. There is some improvement in aeration. Underlyi ng interstitial lung disease. Emphysema.
[2018-09-26] MEDS ORDERED: NON-FORMULARY DRUG (Vitamin B Complex [Vitamin B Complex] 1 CAP) PO SCH (09:00)
[2018-09-26] MEDS: VITAMIN E (DL,TOCOPHERYL ACET) 400 UNIT CAP PO SCH (09:10)
[2018-09-26 11:12] LABS: Glucose,Whole Blood 133 mg/dL (75-99)
--- NOTE | 2018-09-26 12:22 | P.PN ---
Subjective Progress Note Date: 09/26/18 Principal diagnosis: Right lower lobe pneumonia This is an 83-year-old female familiar to my service, known history of COPD, previous history of pneumonia, patient presented to the ER on 09/25/2018 with almost 1 week history of cough, shortness of breath, fever, chills, and upon presentation she was noted to have abnormal chest x-ray showing a new right lower lobe infiltrate consistent with pneumonia and a small parapneumonic effusion. There was also evidence of coarse and interstitial. Patient was admitted, placed on antibiotics in the form of Rocephin and Zithromax, patient is felt to have community-acquired pneumonia and acute exacerbation of COPD. CBC was relatively normal. Complete metabolic profile was normal. Renal profile was normal. ProBNP level was normal. Cardiac panel was normal. Patient denies any headaches, no blurred vision, no dizziness, no chest pain, no nausea no vomiting no abdominal pain no melena no hematemesis no dysuria and no frequency no urgency. Denies any aches or pains. Patient is seen again today 09/26/2018 in follow-up on the regular medical floor. She is awake and alert in no acute distress. She is breathing a bit better today as compared to yesterday. Still not quite back to her baseline. She is currently afebrile. Maintaining good O2 saturations in the 90s on 2 L/m per nasal cannula. Hemodynamically stable. White count 6.0. Hemoglobin 13.0. Creatinine 0.56. Influenza screen negative. She is currently on antibiotics in the form of ceftriaxone and azithromycin, DuoNeb inhalations, Symbicort, IV Solu-Medrol. Objective - Vital Signs Vital signs: Vital Signs Temp 97.3 F L 09/26/18 12:09 Pulse 97 09/26/18 12:09 Resp 17 09/26/18 12:09 BP 128/65 09/26/18 12:09 Pulse Ox 92 L 09/26/18 12:09 Intake & Output 09/25/18 09/26/18 09/26/18 18:59 06:59 18:59 Intake Total 600 450 Balance 600 450 Weight 58.06 kg Intake: Intake, IV Titration 600 450 Amount Sodium Chloride 0.9% 1, 600 400 000 ml @ 50 mls/hr IV . Q20H [facility] Rx#:[id number] cefTRIAXone 1,000 mg In 50 Sodium Chloride 0.9% 50 ml @ 100 mls/hr IVPB Q24HR [facility] Rx#:[id number] Other: Voiding Method Toilet Toilet - Exam GENERAL EXAM: Alert, active, comfortable in no apparent distress. On nasal O2. HEAD: Normocephalic. EYES: Normal reaction of pupils, equal size. NOSE: Clear with pink turbinates. THROAT: No erythema or exudates. NECK: No masses, no JVD. CHEST: No chest wall deformity. LUNGS: Equal air entry with few scattered wheezing, crackles in the right posterior base. Diminished CVS: S1 and S2 normal with no audible murmur, regular rhythm. ABDOMEN: No hepatosplenomegaly, normal bowel sounds, no guarding or rigidity. SPINE: No scoliosis or deformity SKIN: No rashes CENTRAL NERVOUS SYSTEM: No focal deficits, tone is normal in all 4 extremities. EXTREMITIES: There is no peripheral edema. No clubbing, no cyanosis. Peripheral pulses are intact. - Labs CBC & Chem 7: 09/26/18 07:29 09/26/18 07:29 Labs: Abnormal Lab Results - Last 24 Hours (Table) 09/25/18 09/26/18 09/26/18 Range/Units 21:29 07:11 07:29 Lymphocytes # 0.6 L (1.0-4.8) k/uL Glucose (74-99) mg/dL POC Glucose (mg/dL) 183 H 143 H (75-99) mg/dL 09/26/18 09/26/18 Range/Units 07:29 11:10 Lymphocytes # (1.0-4.8) k/uL Glucose 139 H (74-99) mg/dL POC Glucose (mg/dL) 133 H (75-99) mg/dL Assessment and Plan Assessment: Impression: #1 Acute on chronic hypoxic respiratory failure secondary to an acute exacerbation of chronic obstructive pulmonary disease along with an acute community-acquired right lower lobe pneumonia. #2 Acute exacerbation of chronic obstructive pulmonary disease. #3 Remote history of chronic tobacco dependence. #4 Gastroesophageal reflux disease without esophagitis. #5 Osteoarthritis. #6 History of diastolic congestive heart failure. Plan: The patient was seen and evaluated by Dr. Tafoya. She is doing better today as compared to yesterday. We'll continue with current treatment plan. We will increase her activity as tolerated. We'll continue to follow and make further recommendations based on her clinical status. I, the cosigning physician, performed a history & physical examination of the patient. Lungs sounds with bilateral wheezing, crackles in the right posterior base, diminished. Maintaining good O2 saturations in the 90s on 2 L/m per nasal cannula. I discussed the assessment and plan of care with my nurse practitioner, Franci Capps. I attest to the above note as dictated by her.
[2018-09-26] MEDS: MULTIVITAMINS, THERA 1 EACH TAB PO SCH (12:47)
[2018-09-26 16:18] LABS: Glucose,Whole Blood 160 mg/dL (75-99)
--- NOTE | 2018-09-26 16:57 | P.PN ---
Subjective Progress Note Date: 09/26/18 Progress note being dictated for Dr. Arredondo. Interval history: This 83-year-old female admitted with acute right lower lobe pneumonia, COPD and multiple other medical issues. Maintained on nebulized bronchodilators, IV steroids, broad-spectrum IV antibiotics. Cough/breathing improving, hoarse voice. Afebrile, WBC 6. Influenza screen negative. Maintaining O2 sats in the 90s on 2 L nasal cannula. Objective - Vital Signs Vital signs: Vital Signs Temp 97.3 F L 09/26/18 12:09 Pulse 97 09/26/18 15:10 Resp 17 09/26/18 15:10 BP 128/65 09/26/18 12:09 Pulse Ox 92 L 09/26/18 12:09 Intake & Output 09/25/18 09/26/18 09/26/18 18:59 06:59 18:59 Intake Total 600 450 Balance 600 450 Weight 58.06 kg 58.06 kg Intake: Intake, IV Titration 600 450 Amount Sodium Chloride 0.9% 1, 600 400 000 ml @ 50 mls/hr IV . Q20H [facility] Rx#:[id number] cefTRIAXone 1,000 mg In 50 Sodium Chloride 0.9% 50 ml @ 100 mls/hr IVPB Q24HR [facility] Rx#:[id number] Other: Voiding Method Toilet Toilet - Exam PHYSICAL EXAM: VITAL SIGNS: As above GENERAL: Sitting up in bed, no acute distress HEENT: Conjunctivae normal. eyes normal. Oral mucosa moist NECK: No JVD. No thyroid enlargement. No LNs CARDIOVASCULAR: S1, S2 muffled. No murmur RESPIRATION: Breath sounds diminished in the bases. Occasional scattered rhonchi, fine expiratory wheezing, fine basilar crackles-greater on the right.. ABDOMEN: Soft, nontender . No guarding. no masses palpable. Bowel sounds heard. LEGS: No edema. no swelling PSYCHIATRY: Alert and oriented -3, mood and affect normal. NERVOUS SYSTEM: Cranial N 2-12 grossly normal. Moves all 4 limbs. Diffuse weakness No focal deficits. Skin: no ulcer no rash Joints: No active swelling. No inflammation. Lymphatic system. No LN neck axilla or groin. - Labs CBC & Chem 7: 09/26/18 07:29 09/26/18 07:29 Labs: Abnormal Lab Results - Last 24 Hours (Table) 09/25/18 09/26/18 09/26/18 Range/Units 21:29 07:11 07:29 Lymphocytes # 0.6 L (1.0-4.8) k/uL Glucose (74-99) mg/dL POC Glucose (mg/dL) 183 H 143 H (75-99) mg/dL 09/26/18 09/26/18 09/26/18 Range/Units 07:29 11:10 16:17 Lymphocytes # (1.0-4.8) k/uL Glucose 139 H (74-99) mg/dL POC Glucose (mg/dL) 133 H 160 H (75-99) mg/dL Microbiology - Last 24 Hours (Table) 09/25/18 10:17 Blood Culture - Preliminary Blood No Growth after 24 hours Assessment and Plan Assessment: -Acute right lower lobe pneumonia, possibly community-acquired -Acute COPD exacerbation -Acute on chronic hypoxic respiratory failure secondary to both acute pneumonia and acute COPD exacerbation. -History of CHF, diastolic -Gastroesophageal reflux disease -Hypertension -Chronic hypoxic respiratory failure -Bilateral glaucoma -Degenerative joint disease -Remote history of nicotine dependence Plan: Continue on current medication regime ,monitoring and symptomatic treatment. Maintain nebulized bronchodilators, steroids, antibiotics. Cultures pending. Increase activity as tolerated. Follow closely with pulmonary. The impression and plan of care has been dictated as directed. : I performed a history and examination of this patient, discussed the same with the dictator. I agree with the dictator's note ,documented as a scribe. Any additional findings or plans will be noted.
[2018-09-26] MEDS: SODIUM CHLORIDE 0.9% 1,000 ML IV SCH (17:17)
[2018-09-26 18:39] LABS: Hemoglobin A1C 5.4 % (4.0-6.0)
[2018-09-26 20:04] LABS: Glucose,Whole Blood 198 mg/dL (75-99)
[2018-09-26] MEDS: LATANOPROST 0.005% OPHTH DROPS 2.5 ML BTL BOTH EYES SCH (20:59)
[2018-09-27] MEDS: methylPREDNISolone SOD SUCCI 40 MG/ML 1 ML VIAL IV SCH ×3 (00:08→17:34)
[2018-09-27] MEDS: IPRATROPIUM-ALBUTEROL 3 ML NEB INHALATION SCH ×4 (07:44→20:45)
[2018-09-27] MEDS: SYMBICORT 160-4.5 MCG INHALER INHALATION SCH ×2 (07:44→20:44)
[2018-09-27 07:50] LABS: Glucose,Whole Blood 122 mg/dL (75-99)
[2018-09-27] MEDS: PANTOPRAZOLE 40 MG TABLET PO SCH (08:29)
[2018-09-27] MEDS: VIT A,C & E-LUTEIN-MINERALS 1 EACH TAB PO SCH ×2 (08:29→21:54)
[2018-09-27] MEDS: VITAMIN E (DL,TOCOPHERYL ACET) 400 UNIT CAP PO SCH (08:29)
[2018-09-27] MEDS: FUROSEMIDE 20 MG TAB PO SCH ×2 (08:29→17:33)
[2018-09-27] MEDS: HEPARIN SODIUM,PORCINE 5,000 UNIT/ML 1 ML VIAL SQ SCH ×2 (08:30→21:53)
[2018-09-27] MEDS: INSULIN ASPART 100 UNIT/ML 1 ML 10 ML VIAL SQ SCH ×4 (08:30→21:53)
[2018-09-27] MEDS: CHOLECALCIFEROL 1,000 UNIT TAB PO SCH (08:30)
[2018-09-27 08:31] LABS: Basophils % (A) 0 %; Eosinophils % (A) 0 %; HCT 40.5 % (34.0-46.0); Lymphocytes # (A) 1.3 k/uL (1.0-4.8); Lymphocytes % (A) 9 %; MCHC 32.2 g/dL (31.0-37.0); MCV 99.4 fL (80.0-100.0); Mean Platelet Volume 7.4; Monocytes # (A) 0.4 k/uL (0-1.0); Monocytes % (A) 3 %; Neutrophils # (A) 12.1 k/uL (1.3-7.7); Neutrophils % (A) 87 %; Platelet Count 276 k/uL (150-450); RBC 4.08 m/uL (3.80-5.40); RDW 12.6 % (11.5-15.5); WBC 13.9 k/uL (3.8-10.6)
[2018-09-27 09:04] LABS: Anion Gap 7 mmol/L; Blood Urea Nitrogen 24 mg/dL (7-17); Calcium 9.1 mg/dL (8.4-10.2); Carbon Dioxide 27 mmol/L (22-30); Chloride 108 mmol/L (98-107); Glucose 116 mg/dL (74-99); Potassium 4.7 mmol/L (3.5-5.1); Sodium 142 mmol/L (137-145)
--- NOTE | 2018-09-27 11:32 | P.PN ---
Subjective Progress Note Date: 09/27/18 Principal diagnosis: Right lower lobe pneumonia This is an 83-year-old female familiar to my service, known history of COPD, previous history of pneumonia, patient presented to the ER on 09/25/2018 with almost 1 week history of cough, shortness of breath, fever, chills, and upon presentation she was noted to have abnormal chest x-ray showing a new right lower lobe infiltrate consistent with pneumonia and a small parapneumonic effusion. There was also evidence of coarse and interstitial. Patient was admitted, placed on antibiotics in the form of Rocephin and Zithromax, patient is felt to have community-acquired pneumonia and acute exacerbation of COPD. CBC was relatively normal. Complete metabolic profile was normal. Renal profile was normal. ProBNP level was normal. Cardiac panel was normal. Patient denies any headaches, no blurred vision, no dizziness, no chest pain, no nausea no vomiting no abdominal pain no melena no hematemesis no dysuria and no frequency no urgency. Denies any aches or pains. Patient is seen again today 09/26/2018 in follow-up on the regular medical floor. She is awake and alert in no acute distress. She is breathing a bit better today as compared to yesterday. Still not quite back to her baseline. She is currently afebrile. Maintaining good O2 saturations in the 90s on 2 L/m per nasal cannula. Hemodynamically stable. White count 6.0. Hemoglobin 13.0. Creatinine 0.56. Influenza screen negative. She is currently on antibiotics in the form of ceftriaxone and azithromycin, DuoNeb inhalations, Symbicort, IV Solu-Medrol. The patient is seen again today 09/27/2018 in follow-up on the regular medical floor. She is currently resting comfortably in bed. She is awake and alert in no acute distress. She still has a productive cough of thick yellow sputum. Cultures are pending. She is maintaining O2 saturations in the low 90s on 3 L/ m per nasal cannula. She's afebrile. Hemodynamically stable. White count 13.9. Hemoglobin 13.0. Creatinine 0.62. Objective - Vital Signs Vital signs: Vital Signs Temp 97.3 F L 09/27/18 05:00 Pulse 86 09/27/18 07:59 Resp 18 09/27/18 07:44 BP 148/78 09/27/18 05:00 Pulse Ox 94 L 09/27/18 05:00 Intake & Output 09/26/18 09/27/18 09/27/18 18:59 06:59 18:59 Intake Total 450 600 Balance 450 600 Weight 58.06 kg Intake: Intake, IV Titration 450 600 Amount Sodium Chloride 0.9% 1, 400 600 000 ml @ 50 mls/hr IV . Q20H [facility] Rx#:[id number] cefTRIAXone 1,000 mg In 50 Sodium Chloride 0.9% 50 ml @ 100 mls/hr IVPB Q24HR [facility] Rx#:[id number] Other: Voiding Method Toilet Toilet # Voids 1 - Exam GENERAL EXAM: Alert, active, comfortable in no apparent distress. On nasal O2. HEAD: Normocephalic. EYES: Normal reaction of pupils, equal size. NOSE: Clear with pink turbinates. THROAT: No erythema or exudates. NECK: No masses, no JVD. CHEST: No chest wall deformity. LUNGS: Equal air entry with few scattered wheezing, crackles in the right posterior base. Diminished CVS: S1 and S2 normal with no audible murmur, regular rhythm. ABDOMEN: No hepatosplenomegaly, normal bowel sounds, no guarding or rigidity. SPINE: No scoliosis or deformity SKIN: No rashes CENTRAL NERVOUS SYSTEM: No focal deficits, tone is normal in all 4 extremities. EXTREMITIES: There is no peripheral edema. No clubbing, no cyanosis. Peripheral pulses are intact. - Labs CBC & Chem 7: 09/27/18 08:00 09/27/18 08:00 Labs: Abnormal Lab Results - Last 24 Hours (Table) 09/26/18 09/26/18 09/27/18 Range/Units 16:17 20:02 07:49 WBC (3.8-10.6) k/uL Neutrophils # (1.3-7.7) k/uL Chloride (98-107) mmol/L BUN (7-17) mg/dL Glucose (74-99) mg/dL POC Glucose (mg/dL) 160 H 198 H 122 H (75-99) mg/dL 09/27/18 09/27/18 Range/Units 08:00 08:00 WBC 13.9 H (3.8-10.6) k/uL Neutrophils # 12.1 H (1.3-7.7) k/uL Chloride 108 H (98-107) mmol/L BUN 24 H (7-17) mg/dL Glucose 116 H (74-99) mg/dL POC Glucose (mg/dL) (75-99) mg/dL Microbiology - Last 24 Hours (Table) 09/26/18 08:58 Gram Stain - Preliminary Sputum 09/25/18 10:17 Blood Culture - Preliminary Blood No Growth after 24 hours Assessment and Plan Assessment: Impression: #1 Acute hypoxic respiratory failure secondary to an acute exacerbation of chronic obstructive pulmonary disease along with an acute community-acquired right lower lobe pneumonia. #2 Acute exacerbation of chronic obstructive pulmonary disease. #3 Remote history of chronic tobacco dependence. #4 Gastroesophageal reflux disease without esophagitis. #5 Osteoarthritis. #6 History of diastolic congestive heart failure. Plan: The patient was seen and evaluated by Dr. Tafoya. Still not quite back to her baseline. We'll continue to titrate down the FiO2 as tolerated. We'll continue with current treatment plan. We will increase her activity as tolerated. We'll continue to follow and make further recommendations based on her clinical status. I, the cosigning physician, performed a history & physical examination of the patient. Lungs sounds with bilateral wheezing, crackles in the right posterior base, diminished. Maintaining good O2 saturations in the 90s on 2 L/m per nasal cannula. I discussed the assessment and plan of care with my nurse practitioner, Franci Capps. I attest to the above note as dictated by her.
[2018-09-27 11:59] LABS: Glucose,Whole Blood 136 mg/dL (75-99)
[2018-09-27] MEDS: SODIUM CHLORIDE 0.9% 1,000 ML IV SCH (12:37)
[2018-09-27] MEDS: MULTIVITAMINS, THERA 1 EACH TAB PO SCH (12:37)
--- NOTE | 2018-09-27 17:16 | P.PN ---
Subjective Progress Note Date: 09/27/18 Progress note being dictated for Dr. Arredondo. Interval history: This 83-year-old female admitted with acute right lower lobe pneumonia, COPD and multiple other medical issues. Maintained on nebulized bronchodilators, IV steroids, broad-spectrum IV antibiotics. Cough/breathing improving, hoarse voice. Afebrile, WBC 6. Influenza screen negative. Maintaining O2 sats in the 90s on 2 L nasal cannula. 09/27/2018 maintained on nebulized bronchodilators, steroids, antibiotics. Remains congested with productive cough-yellow sputum. Maintaining O2 sats in the mid 90s on 3 L nasal cannula. Afebrile, WBC 13.9 ,cultures pending. Objective - Vital Signs Vital signs: Vital Signs Temp 98.6 F 09/27/18 12:14 Pulse 62 09/27/18 12:14 Resp 16 09/27/18 12:14 BP 111/65 09/27/18 12:14 Pulse Ox 99 09/27/18 12:14 Intake & Output 09/26/18 09/27/18 09/27/18 18:59 06:59 18:59 Intake Total 450 600 450 Balance 450 600 450 Weight 58.06 kg Intake: Intake, IV Titration 450 600 450 Amount Sodium Chloride 0.9% 1, 400 600 400 000 ml @ 50 mls/hr IV . Q20H [facility] Rx#:[id number] cefTRIAXone 1,000 mg In 50 50 Sodium Chloride 0.9% 50 ml @ 100 mls/hr IVPB Q24HR [facility] Rx#:[id number] Other: Voiding Method Toilet Toilet Toilet # Voids 1 - Exam PHYSICAL EXAM: VITAL SIGNS: As above GENERAL: Sitting up in chair, no acute distress HEENT: Conjunctivae normal. eyes normal. Oral mucosa moist NECK: No JVD. No thyroid enlargement. No LNs CARDIOVASCULAR: S1, S2 muffled. No murmur RESPIRATION: Breath sounds diminished in the bases. Occasional scattered rhonchi, fine expiratory wheezing, fine basilar crackles-greater on the right. ABDOMEN: Soft, nontender . No guarding. no masses palpable. PositiveBowel sounds. LEGS: No edema. no swelling PSYCHIATRY: Alert and oriented -3, mood and affect normal. NERVOUS SYSTEM: Cranial N 2-12 grossly normal. Moves all 4 limbs. Diffuse weakness No focal deficits. Skin: no ulcer no rash - Labs CBC & Chem 7: 09/27/18 08:00 09/27/18 08:00 Labs: Abnormal Lab Results - Last 24 Hours (Table) 09/26/18 09/26/18 09/27/18 Range/Units 16:17 20:02 07:49 WBC (3.8-10.6) k/uL Neutrophils # (1.3-7.7) k/uL Chloride (98-107) mmol/L BUN (7-17) mg/dL Glucose (74-99) mg/dL POC Glucose (mg/dL) 160 H 198 H 122 H (75-99) mg/dL 09/27/18 09/27/18 09/27/18 Range/Units 08:00 08:00 11:57 WBC 13.9 H (3.8-10.6) k/uL Neutrophils # 12.1 H (1.3-7.7) k/uL Chloride 108 H (98-107) mmol/L BUN 24 H (7-17) mg/dL Glucose 116 H (74-99) mg/dL POC Glucose (mg/dL) 136 H (75-99) mg/dL Microbiology - Last 24 Hours (Table) 09/26/18 08:58 Gram Stain - Preliminary Sputum Sputum Culture - Preliminary 09/25/18 10:17 Blood Culture - Preliminary Blood No Growth after 48 hours Assessment and Plan Assessment: -Acute right lower lobe pneumonia, possibly community-acquired -Acute COPD exacerbation -Acute on chronic hypoxic respiratory failure secondary to both acute pneumonia and acute COPD exacerbation. -History of CHF, diastolic -Gastroesophageal reflux disease -Hypertension -Chronic hypoxic respiratory failure -Bilateral glaucoma -Degenerative joint disease -Remote history of nicotine dependence Plan: Continue on current medication regime ,monitoring and symptomatic treatment. Maintain nebulized bronchodilators, steroids, antibiotics. Increase ambulation as tolerated. Weaning of oxygen in progress. Final Cultures pending. The impression and plan of care has been dictated as directed. : I performed a history and examination of this patient, discussed the same with the dictator. I agree with the dictator's note ,documented as a scribe. Any additional findings or plans will be noted.
[2018-09-27 17:17] LABS: Glucose,Whole Blood 130 mg/dL (75-99)
[2018-09-27 19:50] LABS: Glucose,Whole Blood 162 mg/dL (75-99)
[2018-09-27] MEDS: LATANOPROST 0.005% OPHTH DROPS 2.5 ML BTL BOTH EYES SCH (21:53)
[2018-09-28] MEDS: methylPREDNISolone SOD SUCCI 40 MG/ML 1 ML VIAL IV SCH ×2 (00:32→08:36)
[2018-09-28] MEDS: SODIUM CHLORIDE 0.9% 1,000 ML IV SCH ×2 (04:42→08:42)
[2018-09-28 07:05] LABS: Glucose,Whole Blood 111 mg/dL (75-99)
[2018-09-28] MEDS: IPRATROPIUM-ALBUTEROL 3 ML NEB INHALATION SCH ×4 (07:30→20:15)
[2018-09-28] MEDS: SYMBICORT 160-4.5 MCG INHALER INHALATION SCH ×2 (07:30→20:15)
[2018-09-28 07:34] LABS: Basophils % (A) 0 %; Eosinophils % (A) 0 %; HCT 38.3 % (34.0-46.0); HGB 12.9 gm/dL (11.4-16.0); Lymphocytes % (A) 7 %; MCH 33.3 pg (25.0-35.0); MCHC 33.6 g/dL (31.0-37.0); MCV 99.1 fL (80.0-100.0); Monocytes # (A) 0.3 k/uL (0-1.0); Monocytes % (A) 2 %; Neutrophils # (A) 11.6 k/uL (1.3-7.7); Neutrophils % (A) 89 %; Platelet Count 305 k/uL (150-450); RBC 3.86 m/uL (3.80-5.40); RDW 12.7 % (11.5-15.5)
[2018-09-28 08:12] LABS: Anion Gap 8 mmol/L; Blood Urea Nitrogen 23 mg/dL (7-17); Calcium 8.7 mg/dL (8.4-10.2); Carbon Dioxide 29 mmol/L (22-30); Chloride 106 mmol/L (98-107); Glucose 109 mg/dL (74-99); Potassium 4.1 mmol/L (3.5-5.1); Sodium 143 mmol/L (137-145)
[2018-09-28] MEDS: INSULIN ASPART 100 UNIT/ML 1 ML 10 ML VIAL SQ SCH ×3 (08:29→18:11)
[2018-09-28] MEDS: PANTOPRAZOLE 40 MG TABLET PO SCH (08:35)
[2018-09-28] MEDS: FUROSEMIDE 20 MG TAB PO SCH ×2 (08:37→18:11)
[2018-09-28] MEDS: CHOLECALCIFEROL 1,000 UNIT TAB PO SCH (08:37)
[2018-09-28] MEDS: ASCORBIC ACID 500 MG TAB PO SCH (08:37)
[2018-09-28] MEDS: AZITHROMYCIN 500 MG TAB PO SCH (08:37)
[2018-09-28] MEDS: VIT A,C & E-LUTEIN-MINERALS 1 EACH TAB PO SCH ×2 (08:38→20:12)
[2018-09-28] MEDS: VITAMIN E (DL,TOCOPHERYL ACET) 400 UNIT CAP PO SCH (08:38)
[2018-09-28] MEDS: POTASSIUM CHLORIDE ER 20 MEQ TAB.ER PO SCH (08:38)
[2018-09-28] MEDS: HEPARIN SODIUM,PORCINE 5,000 UNIT/ML 1 ML VIAL SQ SCH ×2 (08:38→20:11)
--- NOTE | 2018-09-28 09:36 | XR ---
EXAMINATION TYPE: XR chest 2V DATE OF EXAM: 09/28/2018 COMPARISON: Prior chest x-ray 09/26/[address] chest HISTORY: Pneumonia TECHNIQUE: Frontal and lateral views of the chest are obtained. FINDINGS: There is some improvement in aeration as compared to prior exam, strand-like areas of basi lar atelectasis persist. No evident pneumothorax. Interstitium is increased. Aorta is dense and aneur ysmal. Lung volumes are prominent as on prior. IMPRESSION: Interstitial lung disease, basilar atelectasis or scarring, emphysema. Aortic aneurysm.
[2018-09-28 11:08] LABS: Glucose,Whole Blood 127 mg/dL (75-99)
--- NOTE | 2018-09-28 12:38 | P.PN ---
Subjective Progress Note Date: 09/28/18 Principal diagnosis: Right lower lobe pneumonia This is an 83-year-old female familiar to my service, known history of COPD, previous history of pneumonia, patient presented to the ER on 09/25/2018 with almost 1 week history of cough, shortness of breath, fever, chills, and upon presentation she was noted to have abnormal chest x-ray showing a new right lower lobe infiltrate consistent with pneumonia and a small parapneumonic effusion. There was also evidence of coarse and interstitial. Patient was admitted, placed on antibiotics in the form of Rocephin and Zithromax, patient is felt to have community-acquired pneumonia and acute exacerbation of COPD. CBC was relatively normal. Complete metabolic profile was normal. Renal profile was normal. ProBNP level was normal. Cardiac panel was normal. Patient denies any headaches, no blurred vision, no dizziness, no chest pain, no nausea no vomiting no abdominal pain no melena no hematemesis no dysuria and no frequency no urgency. Denies any aches or pains. Patient is seen again today 09/26/2018 in follow-up on the regular medical floor. She is awake and alert in no acute distress. She is breathing a bit better today as compared to yesterday. Still not quite back to her baseline. She is currently afebrile. Maintaining good O2 saturations in the 90s on 2 L/m per nasal cannula. Hemodynamically stable. White count 6.0. Hemoglobin 13.0. Creatinine 0.56. Influenza screen negative. She is currently on antibiotics in the form of ceftriaxone and azithromycin, DuoNeb inhalations, Symbicort, IV Solu-Medrol. The patient is seen again today 09/27/2018 in follow-up on the regular medical floor. She is currently resting comfortably in bed. She is awake and alert in no acute distress. She still has a productive cough of thick yellow sputum. Cultures are pending. She is maintaining O2 saturations in the low 90s on 3 L/ m per nasal cannula. She's afebrile. Hemodynamically stable. White count 13.9. Hemoglobin 13.0. Creatinine 0.62. Patient is seen again today 09/28/2018 in follow-up on the regular medical floor. She is currently sitting up in a chair at the bedside. She is awake and alert in no acute distress. She is feeling quite a bit better today as compared to yesterday. She is a loose nonproductive cough. No chills or night sweats. Maintaining good O2 saturations in the mid 90s on room air. She's been afebrile. Hemodynamically stable. Blood and sputum cultures reveal no growth. White count 13.0. Hemoglobin 12.9. Creatinine 0.61. She remains on DuoNeb inhalations, Symbicort, Solu-Medrol, ceftriaxone and azithromycin. Chest x-ray shows improved aeration compared to previous. There continues to be areas of basilar atelectasis. Objective - Vital Signs Vital signs: Vital Signs Temp 97.7 F 09/28/18 12:11 Pulse 102 H 09/28/18 12:11 Resp 18 09/28/18 12:11 BP 112/65 09/28/18 12:11 Pulse Ox 95 09/28/18 12:11 Intake & Output 09/27/18 09/28/18 09/28/18 18:59 06:59 18:59 Intake Total 450 1080 Balance 450 1080 Intake: Intake, IV Titration 450 600 Amount Sodium Chloride 0.9% 1, 400 600 000 ml @ 50 mls/hr IV . Q20H JUAN FRANCISCO Rx#:[id number] cefTRIAXone 1,000 mg In 50 Sodium Chloride 0.9% 50 ml @ 100 mls/hr IVPB Q24HR JUAN FRANCISCO Rx#:[id number] Oral 480 Other: Voiding Method Toilet Toilet Toilet Diaper Diaper Incontinent Incontinent # Voids 2 - Exam GENERAL EXAM: Alert, active, comfortable in no apparent distress. On room air. HEAD: Normocephalic. EYES: Normal reaction of pupils, equal size. NOSE: Clear with pink turbinates. THROAT: No erythema or exudates. NECK: No masses, no JVD. CHEST: No chest wall deformity. LUNGS: Equal air entry with few scattered wheezing, crackles in the right posterior base. Diminished CVS: S1 and S2 normal with no audible murmur, regular rhythm. ABDOMEN: No hepatosplenomegaly, normal bowel sounds, no guarding or rigidity. SPINE: No scoliosis or deformity SKIN: No rashes CENTRAL NERVOUS SYSTEM: No focal deficits, tone is normal in all 4 extremities. EXTREMITIES: There is no peripheral edema. No clubbing, no cyanosis. Peripheral pulses are intact. - Labs CBC & Chem 7: 09/28/18 07:17 09/28/18 07:17 Labs: Abnormal Lab Results - Last 24 Hours (Table) 09/27/18 09/27/18 09/28/18 Range/Units 17:16 19:48 07:04 WBC (3.8-10.6) k/uL Neutrophils # (1.3-7.7) k/uL BUN (7-17) mg/dL Glucose (74-99) mg/dL POC Glucose (mg/dL) 130 H 162 H 111 H (75-99) mg/dL 09/28/18 09/28/18 09/28/18 Range/Units 07:17 07:17 11:06 WBC 13.0 H (3.8-10.6) k/uL Neutrophils # 11.6 H (1.3-7.7) k/uL BUN 23 H (7-17) mg/dL Glucose 109 H (74-99) mg/dL POC Glucose (mg/dL) 127 H (75-99) mg/dL Microbiology - Last 24 Hours (Table) 09/25/18 10:17 Blood Culture - Preliminary Blood No Growth after 72 hours 09/26/18 08:58 Gram Stain - Preliminary Sputum Sputum Culture - Preliminary Assessment and Plan Assessment: Impression: #1 Acute hypoxic respiratory failure secondary to an acute exacerbation of chronic obstructive pulmonary disease along with an acute community-acquired right lower lobe pneumonia. #2 Acute exacerbation of chronic obstructive pulmonary disease. #3 Remote history of chronic tobacco dependence. #4 Gastroesophageal reflux disease without esophagitis. #5 Osteoarthritis. #6 History of diastolic congestive heart failure. Plan: The patient was seen and evaluated by Dr. Tafoya. Chest x-ray shows improved aeration. She is improving daily. Currently not requiring oxygen supplementation. We'll continue with current treatment plan. We will increase her activity as tolerated. We'll continue to follow and make further recommendations based on her clinical status. I, the cosigning physician, performed a history & physical examination of the patient. Lungs sounds with crackles in the posterior bases, diminished. Maintaining good O2 saturations in the 90s on room air. I discussed the assessment and plan of care with my nurse practitioner, Franci Capps. I attest to the above note as dictated by her.
[2018-09-28] MEDS: MULTIVITAMINS, THERA 1 EACH TAB PO SCH (13:24)
[2018-09-28] MEDS: predniSONE 20 MG TAB PO SCH (13:29)
--- NOTE | 2018-09-28 13:57 | PN ---
PROGRESS NOTE DATE OF SERVICE: 09/28/2018 PRESENTING COMPLAINT: Cough. INTERVAL HISTORY: Patient admitted with COPD exacerbation, pneumonia. Still got some yellow sputum, but feels better. Has been up to the bathroom. Appetite is getting better. No fever. No chills. Granddaughter, Caren is visiting. REVIEW OF SYSTEMS: Done for constitutional, cardiovascular, GI, pulmonary; relevant findings as above. CURRENT MEDICATIONS: Reviewed that include IV ceftriaxone, IV Solu-Medrol. PHYSICAL EXAMINATION: Temperature 97.7, pulse 102, respiratory 18, blood pressure 112/65, pulse ox 95% on room air. GENERAL APPEARANCE: Sitting up in a chair, eating a lunch. EYES: Pupils equal, conjunctivae are normal. NECK: JVD not raised. Mass not palpable. RESPIRATORY: Effort increased. LUNGS: Fair entry. CARDIOVASCULAR: First and second sounds are normal. No edema. ABDOMEN: Soft, nontender. Liver and spleen not palpable. PSYCHIATRY: Alert and oriented x3. Mood and affect normal. INVESTIGATIONS: White count 13, hemoglobin 12.9, potassium 4.1. Blood cultures negative till now. Sputum cultures showing normal respiratory asya. ASSESSMENT: 1. Pneumonia with clinical improvement. 2. Acute chronic obstructive pulmonary disease exacerbation in an ex-smoker. 3. Gastroesophageal reflux disease. 4. Hyperlipidemia. 5. Chronic hiatal hernia. 6. Primary osteoarthritis of the hands and neck. 7. Chronic urinary incontinence. 8. Chronic congestive heart failure, ejection fraction not known. PLAN: Patient doing better. Will switch over to oral prednisone. DC IV fluids. Encourage patient to ambulate. Hopefully can be discharged tomorrow. MMODL / IJN: [id number] /
[2018-09-28 16:42] LABS: Glucose,Whole Blood 143 mg/dL (75-99)
[2018-09-28] MEDS: ACETAMINOPHEN TAB 500 MG TAB PO PRN (18:11)
[2018-09-28] MEDS: LATANOPROST 0.005% OPHTH DROPS 2.5 ML BTL BOTH EYES SCH (20:11)
[2018-09-28 21:06] LABS: Glucose,Whole Blood 189 mg/dL (75-99)
[2018-09-29] MEDS: INSULIN ASPART 100 UNIT/ML 1 ML 10 ML VIAL SQ SCH ×3 (02:17→12:10)
[2018-09-29 02:18] VITALS: RESP 16
[2018-09-29 07:34] LABS: Glucose,Whole Blood 88 mg/dL (75-99)
[2018-09-29 08:05] LABS: Basophils % (A) 0 %; Eosinophils % (A) 0 %; HCT 39.2 % (34.0-46.0); HGB 12.5 gm/dL (11.4-16.0); Lymphocytes % (A) 20 %; MCH 31.7 pg (25.0-35.0); MCHC 31.9 g/dL (31.0-37.0); MCV 99.3 fL (80.0-100.0); Mean Platelet Volume 7.4; Monocytes # (A) 0.5 k/uL (0-1.0); Monocytes % (A) 5 %; Neutrophils # (A) 7.3 k/uL (1.3-7.7); Neutrophils % (A) 72 %; Platelet Count 321 k/uL (150-450); RBC 3.95 m/uL (3.80-5.40); RDW 12.7 % (11.5-15.5); WBC 10.1 k/uL (3.8-10.6)
[2018-09-29 08:17] LABS: Anion Gap 9 mmol/L; Blood Urea Nitrogen 28 mg/dL (7-17); Calcium 8.8 mg/dL (8.4-10.2); Carbon Dioxide 29 mmol/L (22-30); Chloride 105 mmol/L (98-107); Glucose 82 mg/dL (74-99); Potassium 3.8 mmol/L (3.5-5.1); Sodium 143 mmol/L (137-145)
[2018-09-29] MEDS: IPRATROPIUM-ALBUTEROL 3 ML NEB INHALATION SCH ×3 (08:30→16:30)
[2018-09-29] MEDS: SYMBICORT 160-4.5 MCG INHALER INHALATION SCH (08:30)
[2018-09-29] MEDS: predniSONE 20 MG TAB PO SCH (09:43)
[2018-09-29] MEDS: ACETAMINOPHEN TAB 500 MG TAB PO PRN (09:43)
[2018-09-29] MEDS: POTASSIUM CHLORIDE ER 20 MEQ TAB.ER PO SCH (09:44)
[2018-09-29] MEDS: FUROSEMIDE 20 MG TAB PO SCH ×2 (09:44→17:18)
[2018-09-29] MEDS: PANTOPRAZOLE 40 MG TABLET PO SCH (09:44)
[2018-09-29] MEDS: HEPARIN SODIUM,PORCINE 5,000 UNIT/ML 1 ML VIAL SQ SCH (09:45)
[2018-09-29] MEDS: CHOLECALCIFEROL 1,000 UNIT TAB PO SCH (09:45)
[2018-09-29] MEDS: ASCORBIC ACID 500 MG TAB PO SCH (09:47)
[2018-09-29] MEDS: VITAMIN E (DL,TOCOPHERYL ACET) 400 UNIT CAP PO SCH (09:48)
[2018-09-29] MEDS: AZITHROMYCIN 500 MG TAB PO SCH (09:48)
[2018-09-29] MEDS: VIT A,C & E-LUTEIN-MINERALS 1 EACH TAB PO SCH (09:48)
--- NOTE | 2018-09-29 10:30 | P.PN ---
Subjective Progress Note Date: 09/29/18 Principal diagnosis: Right lower lobe pneumonia This is an 83-year-old female familiar to my service, known history of COPD, previous history of pneumonia, patient presented to the ER on 09/25/2018 with almost 1 week history of cough, shortness of breath, fever, chills, and upon presentation she was noted to have abnormal chest x-ray showing a new right lower lobe infiltrate consistent with pneumonia and a small parapneumonic effusion. There was also evidence of coarse and interstitial. Patient was admitted, placed on antibiotics in the form of Rocephin and Zithromax, patient is felt to have community-acquired pneumonia and acute exacerbation of COPD. CBC was relatively normal. Complete metabolic profile was normal. Renal profile was normal. ProBNP level was normal. Cardiac panel was normal. Patient denies any headaches, no blurred vision, no dizziness, no chest pain, no nausea no vomiting no abdominal pain no melena no hematemesis no dysuria and no frequency no urgency. Denies any aches or pains. Patient is seen again today 09/26/2018 in follow-up on the regular medical floor. She is awake and alert in no acute distress. She is breathing a bit better today as compared to yesterday. Still not quite back to her baseline. She is currently afebrile. Maintaining good O2 saturations in the 90s on 2 L/m per nasal cannula. Hemodynamically stable. White count 6.0. Hemoglobin 13.0. Creatinine 0.56. Influenza screen negative. She is currently on antibiotics in the form of ceftriaxone and azithromycin, DuoNeb inhalations, Symbicort, IV Solu-Medrol. The patient is seen again today 09/27/2018 in follow-up on the regular medical floor. She is currently resting comfortably in bed. She is awake and alert in no acute distress. She still has a productive cough of thick yellow sputum. Cultures are pending. She is maintaining O2 saturations in the low 90s on 3 L/ m per nasal cannula. She's afebrile. Hemodynamically stable. White count 13.9. Hemoglobin 13.0. Creatinine 0.62. Patient is seen again today 09/28/2018 in follow-up on the regular medical floor. She is currently sitting up in a chair at the bedside. She is awake and alert in no acute distress. She is feeling quite a bit better today as compared to yesterday. She is a loose nonproductive cough. No chills or night sweats. Maintaining good O2 saturations in the mid 90s on room air. She's been afebrile. Hemodynamically stable. Blood and sputum cultures reveal no growth. White count 13.0. Hemoglobin 12.9. Creatinine 0.61. She remains on DuoNeb inhalations, Symbicort, Solu-Medrol, ceftriaxone and azithromycin. Chest x-ray shows improved aeration compared to previous. There continues to be areas of basilar atelectasis. Patient is seen today 09/29/2018 in follow-up on the regular medical floor. She is currently awake and alert in no acute distress. She states her breathing is nearly back to her baseline. No worsening cough or congestion. No worsening shortness of breath. She is maintaining good O2 saturations in the 90s on room air. She's afebrile. Hemodynamically stable. Blood and sputum cultures reveal no growth. White count 10.1. Hemoglobin 12.5. Creatinine 0.69. Objective - Vital Signs Vital signs: Vital Signs Temp 98.1 F 09/29/18 05:00 Pulse 88 09/29/18 08:40 Resp 16 09/29/18 05:00 BP 133/81 09/29/18 05:00 Pulse Ox 92 L 09/29/18 07:10 Intake & Output 09/28/18 09/29/18 09/29/18 18:59 06:59 18:59 Intake Total 400 Balance 400 Weight 58.06 kg Intake: Intake, IV Titration 400 Amount Sodium Chloride 0.9% 1, 300 000 ml @ 50 mls/hr IV . Q20H JUAN FRANCISCO Rx#:[id number] cefTRIAXone 1,000 mg In 100 Sodium Chloride 0.9% 50 ml @ 100 mls/hr IVPB Q24HR JUAN FRANCISCO Rx#:[id number] Other: Voiding Method Toilet Toilet Diaper Diaper Incontinent Incontinent # Voids 1 - Exam GENERAL EXAM: Alert, active, comfortable in no apparent distress. On room air. HEAD: Normocephalic. EYES: Normal reaction of pupils, equal size. NOSE: Clear with pink turbinates. THROAT: No erythema or exudates. NECK: No masses, no JVD. CHEST: No chest wall deformity. LUNGS: Equal air entry with few scattered wheezing. Diminished CVS: S1 and S2 normal with no audible murmur, regular rhythm. ABDOMEN: No hepatosplenomegaly, normal bowel sounds, no guarding or rigidity. SPINE: No scoliosis or deformity SKIN: No rashes CENTRAL NERVOUS SYSTEM: No focal deficits, tone is normal in all 4 extremities. EXTREMITIES: There is no peripheral edema. No clubbing, no cyanosis. Peripheral pulses are intact. - Labs CBC & Chem 7: 09/29/18 07:13 09/29/18 07:13 Labs: Abnormal Lab Results - Last 24 Hours (Table) 09/28/18 09/28/18 09/28/18 Range/Units 11:06 16:41 21:01 BUN (7-17) mg/dL POC Glucose (mg/dL) 127 H 143 H 189 H (75-99) mg/dL 09/29/18 Range/Units 07:13 BUN 28 H (7-17) mg/dL POC Glucose (mg/dL) (75-99) mg/dL Microbiology - Last 24 Hours (Table) 09/26/18 08:58 Gram Stain - Final Sputum Sputum Culture - Final 09/25/18 10:17 Blood Culture - Preliminary Blood No Growth after 72 hours Assessment and Plan Assessment: Impression: #1 Acute hypoxic respiratory failure secondary to an acute exacerbation of chronic obstructive pulmonary disease along with an acute community-acquired right lower lobe pneumonia. #2 Acute exacerbation of chronic obstructive pulmonary disease. #3 Remote history of chronic tobacco dependence. #4 Gastroesophageal reflux disease without esophagitis. #5 Osteoarthritis. #6 History of diastolic congestive heart failure. Plan: The patient was seen and evaluated by Dr. Tafoya. She is cleared for discharge from the pulmonary standpoint. Continue with her home pulmonary medications. Complete prednisone taper. Complete her course of antibiotics. She'll follow- up in our office in 1-2 weeks' time. She is however encouraged to call sooner with any recurrence of symptoms or other questions or concerns. I, the cosigning physician, performed a history & physical examination of the patient. Lungs sounds with crackles in the posterior bases, diminished. Maintaining good O2 saturations in the 90s on room air. I discussed the assessment and plan of care with my nurse practitioner, Franci Capps. I attest to the above note as dictated by her.
[2018-09-29 11:25] LABS: Glucose,Whole Blood 90 mg/dL (75-99)
--- NOTE | 2018-09-29 12:31 | XR ---
EXAM TYPE: LUMBAR SPINE X RAY SERIES COMPARISON: NONE HISTORY: Pain TECHNIQUE: 4 views are submitted. FINDINGS: Alignment is anatomic. The pedicles are intact. The transverse processes are intact. Scoliotic curv ature the spine with multilevel hypertrophic and degenerative changes. Vascular calcification seen. M ultilevel facet arthropathy. Nonspecific calcifications in the left upper quadrant. IMPRESSION: 1. Severe multilevel degenerative disc disease and facet arthropathy. Multilevel foraminal encroachme nt suspected.
[2018-09-29] MEDS: MULTIVITAMINS, THERA 1 EACH TAB PO SCH (13:37)
[2018-09-29] MEDS ORDERED: NAPROXEN 250 MG TAB PO SCH (13:45)
[2018-09-29 15:14] VITALS: BP 128/76; TEMP 97.8
[2018-09-29 16:42] VITALS: PULSE 86
--- NOTE | 2018-09-30 23:41 | DS ---
DISCHARGE SUMMARY DATE OF ADMISSION: 09/26/2018 DATE OF DISCHARGE: 09/29/2018 FINAL DIAGNOSES: 1. Pneumonia. 2. Acute chronic obstructive pulmonary disease exacerbation in an ex-smoker. 3. Gastroesophageal reflux disease. 4. Hyperlipidemia. 5. Chronic hiatal hernia. 6. Primary osteoarthritis of the hands and neck. 7. Chronic urine incontinence. 8. Chronic congestive heart failure, ejection fraction not known. 9. 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 HOSPITAL COURSE: This patient presented with COPD exacerbation and pneumonia. Treated with bronchodilators, Solu-Medrol and ceftriaxone. Doing much better at the time of discharge. The patient is having increasing lower back pain. Lumbar spine x-ray did confirm osteoarthritis. He was given naproxen to which she responded better. Care was discussed in detail with the patient. PHYSICAL EXAMINATION: Temperature 97.8 pulse 95, respirations 16, blood pressure 128/76, pulse ox 98% on room air. LUNGS: Improved air entry. CARDIOVASCULAR: First and second sounds normal. INVESTIGATIONS: White count 10.1, hemoglobin 12.5. Lumbar spine x-ray showing evidence of osteoarthritis. Discussion and discharge planning more than 35 minutes. CONSULTATION: Dr. Tafoya from Pulmonary. DISCHARGE MEDICATIONS: 1. Vitamin D3 1000 units p.o. daily. 2. Lasix 20 mg p.o. daily. 3. Centrum Complete multivitamin 1 tablet p.o. daily. 4. Prilosec 20 mg p.o. a.c. b.i.d. 5. Potassium 20 mEq a day. 6. Vitamin A 8000 units p.o. daily. 7. Vitamin C 500 mg p.o. daily. 8. Vitamin B complex 1 capsule p.o. daily. 9. Vitamin E 400 units p.o. daily. 10.PreserVision 2 soft gel 1 capsule p.o. b.i.d. 11.Zithromax 100 mg p.o. daily for 3 days. 12.Symbicort 160/4.5, 2 puffs b.i.d. 13.DuoNeb t.i.d. 14.Naproxen 250 mg p.o. b.i.d. for 20 tablets. FOLLOWUP: Follow up with Dr. Pemberton in 3 days. Follow up with die casting supervisor. MMODL / IJN: [id number] /
== END 2018-09-29 17:50 | disposition home or self-care (01) | DRG 193 ==
LOC: EC 09:08 → 4MS4W 11:38 → 3NMEDONC 12:05 → OBSVTOIN 09-26 23:14
PROVIDERS: ADMIT Hospitalist; ATTEND Hospitalist
DX: J18.9 Pneumonia, unspecified organism (principal); J96.21 Acute and chronic respiratory failure with hypoxia; I50.32 Chronic diastolic (congestive) heart failure; J44.0 Chronic obstructive pulmonary disease with (acute) lower respiratory infection; J44.1 Chronic obstructive pulmonary disease with (acute) exacerbation; J98.11 Atelectasis; Z87.891 Personal history of nicotine dependence; E78.5 Hyperlipidemia, unspecified; H40.9 Unspecified glaucoma; I11.0 Hypertensive heart disease with heart failure; K21.9 Gastro-esophageal reflux disease without esophagitis; K44.9 Diaphragmatic hernia without obstruction or gangrene; M19.041 Primary osteoarthritis, right hand; M19.042 Primary osteoarthritis, left hand; R32 Unspecified urinary incontinence; Z86.19 Personal history of other infectious and parasitic diseases; Z87.01 Personal history of pneumonia (recurrent); Z90.710 Acquired absence of both cervix and uterus; Z98.42 Cataract extraction status, left eye; Z98.41 Cataract extraction status, right eye; Z96.1 Presence of intraocular lens; Z96.652 Presence of left artificial knee joint; Z87.820 Personal history of traumatic brain injury; Z88.8 Allergy status to other drugs, medicaments and biological substances; M50.30 Other cervical disc degeneration, unspecified cervical region; Z84.1 Family history of disorders of kidney and ureter; Z87.440 Personal history of urinary (tract) infections
CPT/HCPCS: 36415; 71046; 72110; 80048; 80053; 82550; 82553; 83036; 83735; 83880; 84484; 85025; 85610; 85730; 87040; 87070; 87205; 87502; 93005; 94640; 96365; 96366; 99285

== ENCOUNTER → 2018-10-11 | Outpatient (CLI) | payer MEDICARE ==
[2018-10-11 16:03] LABS: Basophils # (A) 0.1 k/uL (0-0.2); Basophils % (A) 1 %; Eosinophils # (A) 0.3 k/uL (0-0.7); Eosinophils % (A) 3 %; HCT 45.1 % (34.0-46.0); HGB 14.8 gm/dL (11.4-16.0); Lymphocytes # (A) 2.4 k/uL (1.0-4.8); Lymphocytes % (A) 27 %; MCH 32.8 pg (25.0-35.0); MCHC 32.8 g/dL (31.0-37.0); MCV 100.1 fL (80.0-100.0); Mean Platelet Volume 6.9; Monocytes # (A) 0.4 k/uL (0-1.0); Monocytes % (A) 5 %; Neutrophils # (A) 5.4 k/uL (1.3-7.7); Neutrophils % (A) 62 %; Platelet Count 276 k/uL (150-450); RBC 4.51 m/uL (3.80-5.40); RDW 13.2 % (11.5-15.5); WBC 8.6 k/uL (3.8-10.6)
[2018-10-12 02:44] LABS: Vitamin D 25 Hydroxy 37.4 ng/mL (30.0-100.0)
[2018-10-12 03:01] LABS: Albumin 4.3 g/dL (3.80-4.90); Albumin/Globulin Ratio 2.26 (1.20-2.10); Anion Gap 11.2 mmol/L (4.00-12.00); Calcium 8.8 mg/dL (8.7-10.3); Carbon Dioxide 27.8 mmol/L (21.6-31.8); Globulin 1.9 g/dL (1.6-3.3); Potassium 4.7 mmol/L (3.5-5.5); Total Bilirubin 0.6 mg/dL (0.3-1.2); Total Protein 6.2 g/dL (6.2-8.2)
[2018-10-12 03:07] LABS: T4, Free (Free Thyroxine) 1.6 ng/dL (0.80-1.80)
== END | disposition home or self-care (01) ==
LOC: LABWHC1 15:13
PROVIDERS: ATTEND Internal Medicine
DX: R53.1 Weakness (principal)
CPT/HCPCS: 36415; 80053; 82306; 82607; 83735; 84439; 84443; 85025

== ENCOUNTER 2018-11-16 10:10 | Emergency (ER) | payer MEDICARE ==
[2018-11-16 11:03] VITALS: RESP 16
[2018-11-16] MEDS ORDERED: IPRATROPIUM-ALBUTEROL 3 ML NEB INHALATION STA (11:03)
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
--- NOTE | 2018-11-16 11:26 | XR ---
EXAMINATION TYPE: XR chest 2V DATE OF EXAM: 11/16/2018 COMPARISON: 10/11/2018 TECHNIQUE: PA and lateral views submitted. HISTORY: Cough and congestion FINDINGS: Scoliotic curvature the spine with multilevel degenerative disc disease. Coarsened interstitium noted are subsegmental changes at the left atelectasis or scar. Arthropathy of the shoulders.. There is a vague nodule in the right upper lobe. Measures 8 mm appears more prominent than the previous exam. Mu ltilevel degenerative disc disease noted. IMPRESSION: 1. Correlate for chronic interstitial lung disease and COPD. There is a vague nodular density in the right upper lobe for which CT scan of the chest is recommended.
[2018-11-16] MEDS ORDERED: cefTRIAXone 1,000 MG VIAL (IM USE) IM STA (11:32)
[2018-11-16] MEDS ORDERED: methylPREDNISolone SOD SUCCI 125 MG/2 ML VIAL IM ONE (11:32)
[2018-11-16 12:11] VITALS: PULSE 62
[2018-11-16 13:31] VITALS: BP 126/84; TEMP 97.9
== END 2018-11-16 13:20 | disposition home or self-care (01) ==
LOC: EC 10:10
DX: J44.1 Chronic obstructive pulmonary disease with (acute) exacerbation (principal); R91.1 Solitary pulmonary nodule; I50.9 Heart failure, unspecified; K21.9 Gastro-esophageal reflux disease without esophagitis; M19.042 Primary osteoarthritis, left hand; M19.041 Primary osteoarthritis, right hand; M47.892 Other spondylosis, cervical region; Z87.01 Personal history of pneumonia (recurrent); Z95.818 Presence of other cardiac implants and grafts; Z96.652 Presence of left artificial knee joint; Z87.891 Personal history of nicotine dependence; Z79.899 Other long term (current) drug therapy; Z88.6 Allergy status to analgesic agent; Z88.8 Allergy status to other drugs, medicaments and biological substances
CPT/HCPCS: 71046; 94640; 96372; 99284

== ENCOUNTER 2019-05-02 16:23 | Emergency (ER) | payer MEDICARE ==
[2019-05-02 16:41] VITALS: TEMP 98
[2019-05-02] MEDS ORDERED: methylPREDNISolone SOD SUCCI 125 MG/2 ML VIAL IM ONE (17:40)
[2019-05-02] MEDS ORDERED: IPRATROPIUM-ALBUTEROL 3 ML NEB INHALATION STA (17:40)
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
--- NOTE | 2019-05-02 18:24 | XR ---
EXAMINATION TYPE: XR chest 2V DATE OF EXAM: 05/02/2019 COMPARISON: 01/03/2019 HISTORY: Cough TECHNIQUE: Frontal and lateral views of the chest are obtained. FINDINGS: Heart is normal. There is some linear density at the left lung base. There is some coarsen ing of interstitial markings. Thoracic aorta is atheromatous. There is no heart failure. Bony thorax is intact. IMPRESSION: Pulmonary fibrotic changes. No acute lung disease. No heart failure. No significant flores ge compared to old exam.
[2019-05-02 18:31] VITALS: RESP 18
[2019-05-02 18:53] VITALS: BP 130/60; PULSE 70
== END 2019-05-02 18:50 | disposition home or self-care (01) ==
LOC: EC 16:23
DX: J06.9 Acute upper respiratory infection, unspecified (principal); J44.9 Chronic obstructive pulmonary disease, unspecified; I50.9 Heart failure, unspecified; K21.9 Gastro-esophageal reflux disease without esophagitis; Z79.51 Long term (current) use of inhaled steroids; Z79.899 Other long term (current) drug therapy; Z88.8 Allergy status to other drugs, medicaments and biological substances; Z87.891 Personal history of nicotine dependence; Z96.652 Presence of left artificial knee joint; Z95.5 Presence of coronary angioplasty implant and graft
CPT/HCPCS: 94640; 71046; 99283; 96372; J2930